=== PATIENT | female | born 1950 | race African-American/Black ===

== ENCOUNTER 2018-02-09 13:14 | Observation (INO) | payer OTHER ==
[2018-02-09 14:24] LABS: Absolute Lymphocytes (CBC) 2.4 K/uL (0.7-4.9); Absolute Monocytes 0.8 K/uL (0.1-1.3); Absolute Neutrophil 3.3 K/uL (1.8-8.0); Basophils % 0.9 % (0-1.3); Eosinophils % 3.9 % (0-4.4); Hematocrit 39.3 % (36.0-45.0); Lymphocytes % 35.5 % (15.3-44.8); MCH 26.4 pg (27.0-35.0); MCV 82.5 fL (80-100); MPV 7.9 fL (7.6-11.3); Monocytes % 11.2 % (3.3-12.3); RBC Red Blood Cell Count 4.76 M/uL (3.86-4.86)
[2018-02-09 14:25] LABS: Protime INR 1.1
[2018-02-09 14:42] LABS: ALT/SGPT 23 U/L (12-78); AST/SGOT 21 U/L (15-37); Albumin 3.4 g/dL (3.4-5.0); Alkaline Phosphatase 132 U/L (45-117); BUN Blood Urea Nitrogen 9 mg/dL (7-18); Bicarbonate 27 mmol/L (21-32); Bilirubin Direct 0.1 mg/dL (0-0.2); Bilirubin Total 0.3 mg/dL (0.2-1.0); Glucose Level 109 mg/dL (74-106); Magnesium 1.7 mg/dL (1.8-2.4); NT PRO-BNP 26 pg/mL (<125); Potassium 3.6 mmol/L (3.5-5.1); Protein, Total 7.2 g/dL (6.4-8.2); Sodium Level 143 mmol/L (136-145); Troponin (Emerg Dept Use Only) < 0.02 ng/mL (0.0-0.045)
--- NOTE | 2018-02-09 15:19 | RAD REPORT ---
EXAM DESCRIPTION: RAD - Chest Single View - 02/09/2018 2:49 pm CLINICAL HISTORY: Left-sided chest pain COMPARISON: Chest exam March 2016, CT chest December 2015 TECHNIQUE: AP portable chest image was obtained 1431 hours . FINDINGS: No focal infiltrate identified. Under penetrated technique accentuates left lung base altagracia ings. Masslike density in the medial left lung base is a known Bochdalek's hernia. Heart and vasculat ure are normal. No measurable pleural effusion and no pneumothorax. No acute bony abnormality seen. N o acute aortic findings suspected. IMPRESSION: Portable chest exam is limited but no acute cardiopulmonary process seen.
--- NOTE | 2018-02-09 16:00 | EDPHYS ---
Physician Documentation [facility] Department Name: Adalgisa Adams Age: 67 yrs Sex: Female : 1950 Arrival Date: 02/09/2018 Time: 13:16 Bed 26 Private MD: Chucky Albrecht B ED Physician Brayden Gordon HPI: 02/09 16:11 This 67 yrs old Black Female presents to ER via Ambulatory with complaints of Chest kdr Pain, Arm Pain. 16:11 The patient or guardian reports chest pain that is located primarily in the substernal kdr area, anterior chest wall, left, Under left breast. 02/10 09:56 Onset: suddenly, this morning, When she awoke from sleep. The pain radiates to the left kdr arm, the left shoulder, left neck. Associated signs and symptoms: Pertinent positives: dizziness, lightheadedness, shortness of breath, Pertinent negatives: abdominal pain, cough, headache, lower extremity pain, lower extremity swelling, near syncope, palpitations, syncope, vomiting. The chest pain is described as sharp. Duration: The patient or guardian reports multiple episodes, that are intermittent, that wax and wane, with no pattern, Worse with movement. Modifying factors: The symptoms are alleviated by nothing. the symptoms are aggravated by deep breath, movement. Severity of pain: At its worst the pain was mild moderate just prior to arrival, in the emergency department the pain has improved mildly. The patient has not experienced similar symptoms in the past, Had cardiac w/u with Dr. Vega last year but no other CAD known. The patient has not recently seen a physician. Historical: - Allergies: 02/09 13:20 Codeine; la1 - Home Meds: 19:39 losartan 50 mg oral tab 1 tab once daily for Hypertension [Active]; [place]-3 oral oral tl3 twice a day [Active]; cyclobenzaprine 5 mg Oral tab 1 tab 3 times per day [Active]; hydrochlorothiazide 25 mg Oral tab 1 tab 2 times per day [Active]; metformin 850 mg Oral tab 1 tab 2 times per day [Active]; omeprazole 20 mg Oral cpDR 1 cap once daily [Active]; allopurinol 300 mg Oral tab 1 tab once daily [Active]; Bystolic 10 mg oral tab 1 tab once daily [Active]; methscopolamine 5 mg oral tab 1 tab daily [Active]; atorvastatin 10 mg oral tab 1 tab once daily [Active]; Calcium Citrate Oral daily [Active]; magnesium oxide Oral daily [Active]; Trulicity 1.5 mg/0.5 mL subcutaneous pnij once wkly for Type 2 Diabetes Mellitus [Active]; - PMHx: 13:20 Diabetes - NIDDM; Hypertension; la1 - Immunization history:: Adult Immunizations up to date. - Social history:: Smoking status: Patient/guardian denies using tobacco. - Ebola Screening: : No symptoms or risks identified at this time. ROS: 02/10 09:56 Constitutional: Negative for fever, chills, and weight loss, Eyes: Negative for injury, kdr pain, redness, and discharge, ENT: Negative for injury, pain, and discharge, Neck: Negative for injury, pain, and swelling, Abdomen/GI: Negative for abdominal pain, nausea, vomiting, diarrhea, and constipation, Back: Negative for injury and pain, : Negative for injury, bleeding, discharge, and swelling, MS/Extremity: Negative for injury and deformity, Skin: Negative for injury, rash, and discoloration, Neuro: Negative for headache, weakness, numbness, tingling, and seizure activity. Psych: Negative for depression, anxiety, suicide ideation, homicidal ideation, and hallucinations, Allergy/Immunology: Negative for hives, rash, and allergies, Endocrine: Negative for neck swelling, polydipsia, polyuria, polyphagia, and marked weight changes, Hematologic/Lymphatic: Negative for swollen nodes, abnormal bleeding, and unusual bruising. Cardiovascular: Positive for chest pain, of the left breast, Negative for edema, orthopnea, palpitations, paroxysmal nocturnal dyspnea. Respiratory: Positive for shortness of breath. Neuro: Positive for dizziness. Exam: 09:56 Constitutional: This is a well developed, well nourished patient who is awake, alert, kdr and in no acute distress. Head/Face: Normocephalic, atraumatic. Eyes: Pupils equal round and reactive to light, extra-ocular motions intact. Lids and lashes normal. Conjunctiva and sclera are non-icteric and not injected. Cornea within normal limits. Periorbital areas with no swelling, redness, or edema. Neck: Trachea midline, no thyromegaly or masses palpated, and no cervical lymphadenopathy. Supple, full range of motion without nuchal rigidity, or vertebral point tenderness. No Meningismus. Chest/axilla: Normal chest wall appearance and motion. Nontender with no deformity. No lesions are appreciated. Cardiovascular: Regular rate and rhythm with a normal S1 and S2. No gallops, murmurs, or rubs. Normal PMI, no JVD. No pulse deficits. Respiratory: Lungs have equal breath sounds bilaterally, clear to auscultation and percussion. No rales, rhonchi or wheezes noted. No increased work of breathing, no retractions or nasal flaring. Abdomen/GI: Soft, non-tender, with normal bowel sounds. No distension or tympany. No guarding or rebound. No evidence of tenderness throughout. Back: No spinal tenderness. No costovertebral tenderness. Full range of motion. Skin: Warm, dry with normal turgor. Normal color with no rashes, no lesions, and no evidence of cellulitis. MS/ Extremity: Pulses equal, no cyanosis. Neurovascular intact. Full, normal range of motion. Neuro: Awake and alert, GCS 15, oriented to person, place, time, and situation. Cranial nerves II-XII grossly intact. Motor strength 5/5 in all extremities. Sensory grossly intact. Cerebellar exam normal. Normal gait. Psych: Awake, alert, with orientation to person, place and time. Behavior, mood, and affect are within normal limits. Vital Signs: 02/09 13:21 Pulse 85; Resp 16; Temp 97.8; Pulse Ox 98% on R/A; Weight 106.59 kg; Height 5 ft. 4 in. la1 (162.56 cm); 13:21 Pain 10/10; la1 13:22 BP 125 / 98; la1 14:12 BP 135 / 92; Pulse 82; Resp 18; Pulse Ox 100% on R/A; tl3 14:32 BP 142 / 80; Pulse 82; Resp 18; Pulse Ox 100% on R/A; tl3 15:55 BP 132 / 67; Pulse 73; Resp 16; Pulse Ox 100% on R/A; tl3 17:12 BP 150 / 92; Pulse 79; Resp 19; Pulse Ox 100% on R/A; tl3 18:19 BP 164 / 93; Pulse 81; Resp 18; Pulse Ox 100% on R/A; tl3 19:21 BP 134 / 74; Pulse 78; Resp 18; Pulse Ox 100% ; tl3 13:21 Body Mass Index 40.34 (106.59 kg, 162.56 cm) la1 MDM: 15:59 Patient medically screened. kdr 02/10 09:56 HEART Score: History: Moderately Suspicious (1), ECG: Non specific repolarization kdr disturbance / LBTB / PM (1), Age: > or = 65 years (2), Risk Factors: 1 or 2 risk factors (1), Total Score =. Data reviewed: vital signs, nurses notes, lab test result(s), EKG, radiologic studies. Counseling: I had a detailed discussion with the patient and/or guardian regarding: the historical points, exam findings, and any diagnostic results supporting the discharge/admit diagnosis, lab results, radiology results, the need for further work-up and treatment in the hospital. 02/09 13:59 Order name: Basic Metabolic Panel; Complete Time: 15:52 tl3 02/09 13:59 Order name: CBC with Diff; Complete Time: 15:52 tl3 02/09 13:59 Order name: LFT's; Complete Time: 15:52 tl3 02/09 13:59 Order name: Magnesium; Complete Time: 15:52 tl3 02/09 13:59 Order name: NT PRO-BNP; Complete Time: 15:52 tl3 02/09 13:59 Order name: PT-INR; Complete Time: 14:36 tl3 02/09 13:59 Order name: Troponin (emerg Dept Use Only); Complete Time: 15:52 tl3 02/09 13:59 Order name: XRAY Chest (1 view); Complete Time: 15:52 tl3 02/09 13:59 Order name: EKG; Complete Time: 14:01 tl3 02/09 13:59 Order name: Cardiac monitoring; Complete Time: 13:59 tl3 02/09 13:59 Order name: EKG - Nurse/Tech; Complete Time: 13:59 tl3 02/09 13:59 Order name: IV Saline Lock; Complete Time: 13:59 tl3 02/09 13:59 Order name: Labs collected and sent; Complete Time: 13:59 tl3 02/09 13:59 Order name: O2 Per Protocol; Complete Time: 13:59 tl3 02/09 13:59 Order name: O2 Sat Monitoring; Complete Time: 13:59 tl3 Administered Medications: 02/09 16:29 Drug: morphine 2 mg Route: IVP; Infused Over: 2 mins; Site: right antecubital; tl3 17:14 Follow up: Response: Pain is decreased tl3 Disposition: 02/09/18 15:59 Hospitalization ordered by Lena Gillis for Inpatient Admission. Preliminary diagnosis are Chest pain, unspecified, Diabetes mellitus due to underlying condition. - Bed requested for Telemetry/MedSurg (observation). - Status is Inpatient Admission. tl3 - Condition is Fair. - Problem is an acute exacerbation. - Symptoms have improved. UTI on Admission? No Signatures: Dispatcher [employer] EDMS Nancy Burrows RN RN dw Brayden Gordon MD MD kdr Tommy Banks RN RN la1 Jeannine Marie RN RN tl3 Corrections: (The following items were deleted from the chart) 18:40 15:59 Hospitalization Ordered by Lena Gillsi MD for Inpatient Admission. Preliminary dw diagnosis is Chest pain, unspecified; Diabetes mellitus due to underlying condition. Bed requested for Telemetry/MedSurg (observation). Status is Inpatient Admission. Condition is Fair. Problem is an acute exacerbation. Symptoms have improved. UTI on Admission? No. kdr 19:48 18:40 02/09/2018 15:59 Hospitalization Ordered by Lena Gillis MD for Inpatient tl3 Admission. Preliminary diagnosis is Chest pain, unspecified; Diabetes mellitus due to underlying condition. Bed requested for Telemetry/MedSurg (observation). Status is Inpatient Admission. Condition is Fair. Problem is an acute exacerbation. Symptoms have improved. UTI on Admission? No. dw
--- NOTE | 2018-02-09 16:00 | ER ---
Nurse's Notes [facility] Name: Adalgisa Adams Age: 67 yrs Sex: Female : 1950 Arrival Date: 02/09/2018 Time: 13:16 Bed 26 Private MD: Chucky Albrecht B Diagnosis: Chest pain, unspecified;Diabetes mellitus due to underlying condition Presentation: 02/09 13:20 Presenting complaint: Patient states: I woke up with a pain under my left breast that la1 goes around my back and to my left arm and I feel a little SOB and dizzy. It is a sharp, stabbing pain. Transition of care: patient was not received from another setting of care. Onset of symptoms was February 09, 2018. Risk Assessment: Do you want to hurt yourself or someone else? Patient reports no desire to harm self or others. Initial Sepsis Screen: Does the patient meet any 2 criteria? No. Patient's initial sepsis screen is negative. Does the patient have a suspected source of infection? No. Patient's initial sepsis screen is negative. Care prior to arrival: None. 13:20 Method Of Arrival: Ambulatory la1 13:20 Acuity: SHERRIE 3 la1 Historical: - Allergies: 13:20 Codeine; la1 - Home Meds: 19:39 losartan 50 mg oral tab 1 tab once daily for Hypertension [Active]; [place]-3 oral oral tl3 twice a day [Active]; cyclobenzaprine 5 mg Oral tab 1 tab 3 times per day [Active]; hydrochlorothiazide 25 mg Oral tab 1 tab 2 times per day [Active]; metformin 850 mg Oral tab 1 tab 2 times per day [Active]; omeprazole 20 mg Oral cpDR 1 cap once daily [Active]; allopurinol 300 mg Oral tab 1 tab once daily [Active]; Bystolic 10 mg oral tab 1 tab once daily [Active]; methscopolamine 5 mg oral tab 1 tab daily [Active]; atorvastatin 10 mg oral tab 1 tab once daily [Active]; Calcium Citrate Oral daily [Active]; magnesium oxide Oral daily [Active]; Trulicity 1.5 mg/0.5 mL subcutaneous pnij once wkly for Type 2 Diabetes Mellitus [Active]; - PMHx: 13:20 Diabetes - NIDDM; Hypertension; la1 - Immunization history:: Adult Immunizations up to date. - Social history:: Smoking status: Patient/guardian denies using tobacco. - Ebola Screening: : No symptoms or risks identified at this time. Screenin:54 Abuse screen: Denies threats or abuse. Nutritional screening: No deficits noted. tl3 Tuberculosis screening: No symptoms or risk factors identified. Fall Risk None identified. Assessment: 13:54 General: Appears in no apparent distress. well groomed, well developed, well nourished, tl3 Behavior is calm, cooperative, appropriate for age. Pain: Pain radiates to left subscapular area Pain began 4 hours ago. Neuro: Level of Consciousness is awake, alert, obeys commands, Oriented to person, place, time, situation, Appropriate for age. Cardiovascular: Heart tones S1 S2 present Patient's skin is warm and dry. Respiratory: Airway is patent Respiratory effort is even, unlabored, Respiratory pattern is regular, symmetrical. GI: No signs and/or symptoms were reported involving the gastrointestinal system. : No signs and/or symptoms were reported regarding the genitourinary system. EENT: No signs and/or symptoms were reported regarding the EENT system. Derm: No signs and/or symptoms reported regarding the dermatologic system. 14:32 Reassessment: No changes from previously documented assessment. Patient and/or family tl3 updated on plan of care and expected duration. Pain level reassessed. Patient is alert, oriented x 3, equal unlabored respirations, skin warm/dry/pink. Dr Gordon at bedside discussing POC. 15:55 Reassessment: Patient appears in no apparent distress at this time. No changes from tl3 previously documented assessment. Patient and/or family updated on plan of care and expected duration. Pain level reassessed. Patient is alert, oriented x 3, equal unlabored respirations, skin warm/dry/pink. discussed returned lab results with patient and family. 17:12 Reassessment: Patient appears in no apparent distress at this time. No changes from tl3 previously documented assessment. Patient and/or family updated on plan of care and expected duration. Pain level reassessed. Patient is alert, oriented x 3, equal unlabored respirations, skin warm/dry/pink. pt sleeping, easily aroused, no needs at this time. 18:19 Reassessment: Patient appears in no apparent distress at this time. No changes from tl3 previously documented assessment. Patient and/or family updated on plan of care and expected duration. Pain level reassessed. Patient is alert, oriented x 3, equal unlabored respirations, skin warm/dry/pink. waiting for admit. 19:21 Reassessment: Patient appears in no apparent distress at this time. No changes from tl3 previously documented assessment. Patient and/or family updated on plan of care and expected duration. Pain level reassessed. Patient is alert, oriented x 3, equal unlabored respirations, skin warm/dry/pink. pt informed of delays. Vital Signs: 13:21 Pulse 85; Resp 16; Temp 97.8; Pulse Ox 98% on R/A; Weight 106.59 kg; Height 5 ft. 4 in. la1 (162.56 cm); 13:21 Pain 10/10; la1 13:22 BP 125 / 98; la1 14:12 BP 135 / 92; Pulse 82; Resp 18; Pulse Ox 100% on R/A; tl3 14:32 BP 142 / 80; Pulse 82; Resp 18; Pulse Ox 100% on R/A; tl3 15:55 BP 132 / 67; Pulse 73; Resp 16; Pulse Ox 100% on R/A; tl3 17:12 BP 150 / 92; Pulse 79; Resp 19; Pulse Ox 100% on R/A; tl3 18:19 BP 164 / 93; Pulse 81; Resp 18; Pulse Ox 100% on R/A; tl3 19:21 BP 134 / 74; Pulse 78; Resp 18; Pulse Ox 100% ; tl3 13:21 Body Mass Index 40.34 (106.59 kg, 162.56 cm) la1 ED Course: 13:16 Patient arrived in ED. mr 13:16 Chucky Albrecht MD is Private Physician. mr 13:20 Triage completed. la1 13:20 Arm band placed on left wrist. la1 13:35 Brayden Gordon MD is Attending Physician. kdr 13:42 Jeannine Marie, TAMMY is Primary Nurse. tl3 13:45 EKG done, by ED staff, reviewed by Brayden Gordon MD. mh5 13:54 Patient has correct armband on for positive identification. Placed in gown. Bed in low tl3 position. Call light in reach. Side rails up X2. Adult w/ patient. bulk mail technician on. Pulse ox on. NIBP on. Warm blanket given. Pillow given. 13:54 No provider procedures requiring assistance completed. Inserted saline lock: 20 gauge tl3 in right antecubital area, using aseptic technique. Patient maintains SpO2 saturation greater than 95% on room air. 14:33 XRAY Chest (1 view) Sent. tl3 14:50 XRAY Chest (1 view) In Process Unspecified. EDMS 15:58 Lena Gillis MD is Hospitalizing Provider. kdr 19:47 Patient admitted, IV remains in place. tl3 Administered Medications: 16:29 Drug: morphine 2 mg Route: IVP; Infused Over: 2 mins; Site: right antecubital; tl3 17:14 Follow up: Response: Pain is decreased tl3 Outcome: 15:59 Decision to Hospitalize by Provider. kdr 19:47 Admitted to Med/surg accompanied by tech, via stretcher, with chart, Report called to tl3 Ashley MUNOZ 19:47 Condition: stable 19:47 Instructed on the need for admit, Demonstrated understanding of instructions. 19:48 Patient left the ED. tl3 Signatures: Dispatcher [employer] EDAL Brayden Gordon MD MD kdr Rivera, Mary mr Tommy Banks, RN RN Chacha Fontenot [facility] Jeannine Marie, TAMMY RN tl3 Corrections: (The following items were deleted from the chart) 13:22 13:20 Presenting complaint: Patient states: I woke up with a pain under my left breast la1 that goes around my back and to my left arm and I feel a little SOB and dizzy . la1
[2018-02-09] MEDS ORDERED: MORPHINE 2 MG/ML SYR ONE (16:33)
[2018-02-09] MEDS ORDERED: ACETAMINOPHEN 500 MG TAB PO PRN (19:32)
[2018-02-09] MEDS: HYDROCODONE/APAP 10/325 TAB PO PRN (22:54)
[2018-02-10 00:19] VITALS: BMI 39.6
[2018-02-10 01:53] VITALS: O2SAT 95
[2018-02-10] MEDS ORDERED: METOPROLOL TARTRATE 5 MG/5 ML INJ IV STA (02:30)
[2018-02-10 05:07] LABS: Absolute Neutrophil 4.7 K/uL (1.8-8.0); Basophils % 0.7 % (0-1.3); Eosinophils % 3.5 % (0-4.4); Hematocrit 37.2 % (36.0-45.0); Lymphocytes % 24.8 % (15.3-44.8); MCH 26.7 pg (27.0-35.0); MCV 82.2 fL (80-100); Monocytes % 12.2 % (3.3-12.3); RBC Red Blood Cell Count 4.53 M/uL (3.86-4.86)
[2018-02-10] MEDS: HYDROCODONE/APAP 10/325 TAB PO PRN (05:23)
[2018-02-10 05:46] LABS: Bilirubin Total 0.3 mg/dL (0.2-1.0); Magnesium 1.6 mg/dL (1.8-2.4); Potassium 3.8 mmol/L (3.5-5.1); Protein, Total 6.8 g/dL (6.4-8.2)
[2018-02-10] MEDS ORDERED: POTASSIUM CL SA 10 MEQ TAB PO ONE (06:03)
--- NOTE | 2018-02-10 06:09 | EKG ---
Test Date: 2018-02-09 Test Time: 13:42:18 Feed Crusher Operator: SAM MEASUREMENT RESULTS: Intervals: Rate: 85 ND: 172 QRSD: 86 QT: 390 QTc: 464 Foster: P: 41 ND: 172 QRS: 46 T: -14 INTERPRETIVE STATEMENTS: Normal sinus rhythm Nonspecific ST and T wave abnormality Abnormal ECG Compared to ECG 12/25/2015 05:38:44 ST (T wave) deviation now present T-wave abnormality no longer present Electronically Signed On 02-10-18 06:08:28 ASSISTANT MANAGER PT by Barrie Lozano
[2018-02-10] MEDS ORDERED: MAGNESIUM SULFATE 1 gm IVPB 1 GM/100 ML BAG IV ONE (07:00)
[2018-02-10] MEDS ORDERED: MAGNESIUM PO SCH (09:00)
[2018-02-10] MEDS: METFORMIN HCL 850 MG TAB PO SCH ×2 (09:00→20:43)
[2018-02-10] MEDS ORDERED: HOME MED 1 EA UNK (Omeprazole [Omeprazole] 1 CAP) PO SCH (09:00)
[2018-02-10] MEDS: CALCIUM CARB 500MG/VIT D 200 IU TAB PO SCH ×2 (09:00→20:44)
[2018-02-10] MEDS: LOSARTAN POTASSIUM 50 MG TABLET PO SCH (09:40)
[2018-02-10] MEDS: ENOXAPARIN 40 MG/0.4 ML SQ SCH (09:40)
[2018-02-10] MEDS: MAGNESIUM OXIDE 400 MG TAB PO SCH (09:40)
[2018-02-10] MEDS: CYCLOBENZAPRINE 10 MG TAB PO SCH ×3 (09:41→20:43)
[2018-02-10] MEDS: ASPIRIN EC 81 MG TAB PO SCH (09:41)
[2018-02-10] MEDS: NEBIVOLOL HCL 5 MG TAB PO SCH (09:41)
[2018-02-10] MEDS: ALLOPURINOL 300 MG TAB PO SCH (09:41)
[2018-02-10] MEDS: DOCOSAHEXANOIC AC/EPA 1000 MG PO SCH ×2 (09:41→20:43)
[2018-02-10] MEDS: FOLIC ACID 1 MG TABLET PO SCH (09:42)
[2018-02-10] MEDS: HYDROXYCHLOROQUINE 200MG TAB PO SCH ×2 (09:46→20:44)
[2018-02-10 09:49] LABS: Urine Appearance CLEAR; Urine Bilirubin NEGATIVE (NEG); Urine Blood NEGATIVE (NEG); Urine Color YELLOW; Urine Glucose NEGATIVE (NEG); Urine Protein NEGATIVE (NEG); Urine Specific Gravity 1.025 (1.005-1.030); Urine Urobilinogen 0.2 mg/dL (0.2-1.0)
[2018-02-10 10:16] LABS: Urine Microscopic Reflex ORDER UMIC
[2018-02-10 10:21] LABS: Urine Bacteria <20 /HPF (<20); Urine Culture Reflex Order REFLEXED; Urine Mucus LIGHT /HPF (NONE SEEN); Urine RBC <5 /HPF (NONE SEEN)
--- NOTE | 2018-02-10 11:11 | CON ---
CARDIOLOGY CONSULT Chief Complaint: Chest pain. History Of Present Illness: Mrs. Adams has never had any coronary events before. She certainly veloz s multiple risk factors for CAD. She has obesity, diabetes, hypertension, and dyslipidemia. She use s no tobacco. She has never had myocardial infarction, stroke, or chest pain before. The chest pain she had started under the left breast, it did not seem to radiate. It was like sharp stabbing pain. It lasted for several hours without really changing much, although morphine reduce the intensity of it some. Since she has been in the hospital, cardiac enzymes are all normal. The cholesterol level was 112 and LDL cholesterol was only 26 and her HDL was 67, but I would consider an extremely health y lipid profile. Outpatient Medications: Magnesium, immunoglobulin, oral; atorvastatin, nebivolol, allopurinol, omepr azole, metformin, hydroxychloroquine, omega-3 fatty acids, cyclobenzaprine, losartan, Trulicity, aspi rin, and a multivitamin with calcium, and vitamin D3. Apparently, she has also been on allopurinol a s an outpatient. Physical Examination: General: Mrs. Adams is obese, alert, oriented, 5 feet 4, 230 pounds, not in distress. Lungs: Clear. Cardiac: Within normal limits. No friction rub, murmur, or gallop. Abdomen: Soft. Extremities: Trace edema. Distal pulses palpable. Impression: This is probably noncardiac chest pain. Her electrocardiogram shows a nonspecific ST an d T-wave abnormality and looks like the changes typical of left ventricular hypertrophy from hyperten lobito without the voltage. I think the patient should have a pharmacologic nuclear stress test and ec ho. We will do those tomorrow and hopefully that will be normal and we can reassure her about the nature of the pain, look for other causes that might be making her hurt. HARSHAL/BEVERLEY Voice ID: [id number] Report ID: [id number]
--- NOTE | 2018-02-10 12:15 | P.HP ---
Certification for Inpatient Patient admitted to: Observation With expected LOS: <2 Midnights Patient will require the following post-hospital care: None Practitioner: I am a practitioner with admitting privileges, knowledge of patient current condition, hospital course, and medical plan of care. Services: Services provided to patient in accordance with Admission requirements found in Title 42 Section 412.3 of the Code of Federal Regulations Patient History Date of Service: 02/09/18 Reason for admission: Chest pain rule out acute coronary syndrome History of Present Illness: Patient is a 67-year-old female who came into the hospital with chest pain. Pain was mainly in the sternal region. There was radiation to the left side of the arm. Patient has some nausea but no vomiting. Patient came into the hospital for further evaluation. In the ER patient's EKGs did not show any acute findings other some nonspecific changes in the ST segments. Patient also had troponins which were negative. Chest x-ray did not reveal any significant abnormalities. Patient has multiple risk factors so will go ahead and admit the patient to the hospital for further workup. Patient has some autoimmune diseases which can increase the risk of cardiac disease. Check a lipid profile and additional lab testing. Patient will need further workup at this time. Allergies codeine [Codeine] Allergy (Verified 02/09/18 20:36) Itching/Hives/Rash Home Medications: Allopurinol 1 tab PO DAILY 02/09/18 Atorvastatin Calcium [Lipitor*] 1 tab PO DAILY 02/09/18 Cyclobenzaprine [Flexeril*] 1 tab PO TID 02/09/18 Dulaglutide [Trulicity] 02/09/18 Hydroxychloroquine [Plaquenil*] 1 tab PO BID 02/09/18 Immune Glob/Plasma Fra Bovine [Enteragam Powder Packet] 1 packet PO DAILY PRN Losartan Potassium [Cozaar*] 1 tab PO DAILY 02/09/18 Magnesium [Magnesium Gluconate] 1 tab PO DAILY 02/09/18 Metformin HCl 1 tab PO BID 02/09/18 Nebivolol HCl [Bystolic*] 10 mg PO DAILY 02/09/18 [place]-3 Fatty Acids/Fish Oil [Fish Oil 1,000 mg Capsule] 1 cap PO BID 02/09/18 Omeprazole 1 cap PO DAILY 02/09/18 Aspirin [Lo-Dose Aspirin EC] 1 tab PO DAILY 02/10/18 Ca/D3/Mag Ox/Zinc/Hand Pleater/Deangelo/Bor [Calcium 600-D3 Plus Caplet] 1 tab PO BID Folic Acid 1 tab PO DAILY 02/10/18 - Past Medical/Surgical History Has patient received pneumonia vaccine in the past: Yes Diabetic: Yes -: Diabetes -: HTN -: Arthritis -: Gout -: crohns -: high cholesterol -: bilat carpal tunnel 1999 -: right knee replacement 2004 -: hysterectomy 1998 -: cholecystectomy - Family History Mother Medical History: Heart disease, Diabetes, Stroke Father History Unknown: Yes Medical History: Diabetes, Cancer Notes: prostate cx Sister History Unknown: Yes Medical History: Cancer Notes: breast cx - Social History Smoking Status: Never smoker Alcohol use: No CD- Drugs: No Caffeine use: Yes Place of Residence: Home Review of Systems 10-point ROS is otherwise unremarkable Physical Examination - Vital Signs Temperature: 97.5 F Blood Pressure: 135/74 Pulse: 90 Respirations: 17 Pulse Ox (%): 95 - Physical Exam General: Alert, In no apparent distress, Oriented x3 HEENT: Atraumatic, PERRLA, Mucous membr. moist/pink, EOMI, Sclerae nonicteric Neck: Supple, 2+ carotid pulse no bruit, No LAD, Without JVD or thyroid abnormality Respiratory: Clear to auscultation bilaterally, Normal air movement Cardiovascular: Regular rate/rhythm, Normal S1 S2, No murmurs Gastrointestinal: Normal bowel sounds, Soft and benign, Non-distended, No tenderness Musculoskeletal: No clubbing, No swelling, No tenderness Integumentary: No rashes Neurological: Normal gait, Normal speech, Normal strength at 5/5 x4 extr, Normal tone, Sensation intact, Cranial nerves 3-12 intact, Normal affect Lymphatics: No axilla or inguinal lymphadenopathy - Studies Laboratory Data (last 24 hrs) 02/09/18 14:00: PT 13.0 H, INR 1.10 02/09/18 14:00: WBC 6.8, Hgb 12.6, Hct 39.3, Plt Count 288 02/09/18 14:00: Sodium 143, Potassium 3.6, BUN 9, Creatinine 1.10, Glucose 109 H , Magnesium 1.7 L, Total Bilirubin 0.3, AST 21, ALT 23, Alkaline Phosphatase 132 H Assessment & Plan - Problems (Diagnosis) (1) Chest pain, rule out acute myocardial infarction Current Visit: Yes Status: Acute (2) Hyperlipidemia Current Visit: Yes Status: Acute (3) STEPHIE (obstructive sleep apnea) Current Visit: Yes Status: Acute (4) Diabetes mellitus Onset Date: 08/26/14 Current Visit: No Status: Acute (5) HTN (hypertension) Onset Date: 08/26/14 Current Visit: No Status: Acute - Plan 1. Serial troponins and EKG 2. Cardiology consultation 3. Echocardiogram and inpatient stress test(pending cardiology evaluation) 4. Anti-platelet therapy, anti coagulation, beta-derrick, statin, and O2 as needed 5. IV morphine for pain 6. Nitro p.r.n. 7. CPAP mode 8. GI/DVT prophylaxis Discharge Plan: Home Plan to discharge in: 48 Hours - Advance Directives Does patient have a Living Will: No Does patient have a Durable POA for Healthcare: No - Code Status/Comfort Care Code Status Assessed: Yes Code Status: Full Code Critical Care: No Time Spent Managing PTS Care (In Minutes): 50
--- NOTE | 2018-02-10 12:45 | P.PN ---
Subjective Date of Service: 02/10/18 Chief Complaint: Chest pain rule out acute coronary syndrome Subjective: Tolerating diet, Ambulating, Improving, Working w/ PT, Doing well No Chest Pain noted. Awaiting stress test and ECHO to R.o ACS Review of Systems 10-point ROS is otherwise unremarkable Physical Examination - Vital Signs Temperature: 97.5 F Blood Pressure: 135/74 Pulse: 90 Respirations: 17 Pulse Ox (%): 95 - Physical Exam General: Alert, In no apparent distress HEENT: Atraumatic, PERRLA, EOMI Neck: Supple, JVD not distended Respiratory: Clear to auscultation bilaterally, Normal air movement Cardiovascular: Regular rate/rhythm, Normal S1 S2 Gastrointestinal: Normal bowel sounds, No tenderness Musculoskeletal: No tenderness Integumentary: No rashes Neurological: Normal speech, Normal tone, Normal affect Lymphatics: No axilla or inguinal lymphadenopathy - Studies Laboratory Data (last 24 hrs) 02/09/18 14:00: PT 13.0 H, INR 1.10 02/09/18 14:00: WBC 6.8, Hgb 12.6, Hct 39.3, Plt Count 288 02/09/18 14:00: Sodium 143, Potassium 3.6, BUN 9, Creatinine 1.10, Glucose 109 H , Magnesium 1.7 L, Total Bilirubin 0.3, AST 21, ALT 23, Alkaline Phosphatase 132 H Medications List Reviewed: Yes Assessment And Plan - Current Problems (Diagnosis) (1) Chest pain, rule out acute myocardial infarction Current Visit: Yes Status: Acute Plan: Chest Pain with ACS r.o. -Cardiology consulted. Awaiting reccs -ECHO and stress test pending -ACS medication for now (2) Hyperlipidemia Current Visit: Yes Status: Chronic Qualifiers: Hyperlipidemia type: mixed hyperlipidemia Qualified Code(s): E78.2 - Mixed hyperlipidemia (3) STEPHIE (obstructive sleep apnea) Current Visit: Yes Status: Chronic (4) Diabetes mellitus Onset Date: 08/26/14 Current Visit: No Status: Chronic Qualifiers: Diabetes mellitus type: type 2 Diabetes mellitus guest relation officer insulin use: without skilled nursing use Diabetes mellitus complication status: without complication Qualified Code(s): E11.9 - Type 2 diabetes mellitus without complications (5) HTN (hypertension) Onset Date: 08/26/14 Current Visit: No Status: Chronic Qualifiers: Hypertension type: essential hypertension Qualified Code(s): I10 - Essential (primary) hypertension Discharge Plan: Home Plan to discharge in: 48 Hours - Code Status/Comfort Care Code Status Assessed: Yes Critical Care: No
[2018-02-10] MEDS ORDERED: ATORVASTATIN 10 MG TAB PO SCH (21:00)
[2018-02-11 06:29] LABS: Absolute Lymphocytes (CBC) 2.9 K/uL (0.7-4.9); Absolute Neutrophil 3.7 K/uL (1.8-8.0); Eosinophils % 4.2 % (0-4.4); Hematocrit 37.5 % (36.0-45.0); Lymphocytes % 36.8 % (15.3-44.8); MCH 26.6 pg (27.0-35.0); MPV 7.9 fL (7.6-11.3); Monocytes % 12.1 % (3.3-12.3); RBC Red Blood Cell Count 4.57 M/uL (3.86-4.86)
[2018-02-11] MEDS ORDERED: PANTOPRAZOLE 40MG TABLET PO SCH (06:30)
[2018-02-11 06:43] LABS: Albumin 2.9 g/dL (3.4-5.0); Bilirubin Total 0.3 mg/dL (0.2-1.0); Magnesium 1.7 mg/dL (1.8-2.4); Potassium 4.1 mmol/L (3.5-5.1); Protein, Total 6.5 g/dL (6.4-8.2)
[2018-02-11] MEDS ORDERED: MAGNESIUM SULFATE 1 gm IVPB 1 GM/100 ML BAG IV ONE (07:00)
[2018-02-11] MEDS: CALCIUM CARB 500MG/VIT D 200 IU TAB PO SCH ×2 (09:00→12:33)
[2018-02-11] MEDS: CYCLOBENZAPRINE 10 MG TAB PO SCH ×2 (09:00→12:37)
[2018-02-11] MEDS: LOSARTAN POTASSIUM 50 MG TABLET PO SCH ×2 (09:00→12:33)
[2018-02-11] MEDS: FOLIC ACID 1 MG TABLET PO SCH ×2 (09:00→12:33)
[2018-02-11] MEDS: HYDROXYCHLOROQUINE 200MG TAB PO SCH ×2 (09:00→12:33)
[2018-02-11] MEDS: DOCOSAHEXANOIC AC/EPA 1000 MG PO SCH ×2 (09:00→12:30)
[2018-02-11] MEDS: MAGNESIUM OXIDE 400 MG TAB PO SCH ×2 (09:00→12:33)
[2018-02-11] MEDS: ALLOPURINOL 300 MG TAB PO SCH ×2 (09:00→12:33)
[2018-02-11] MEDS: ASPIRIN EC 81 MG TAB PO SCH ×2 (09:00→12:33)
[2018-02-11] MEDS: METFORMIN HCL 850 MG TAB PO SCH ×2 (09:00→12:30)
[2018-02-11] MEDS: NEBIVOLOL HCL 5 MG TAB PO SCH ×2 (09:00→12:33)
[2018-02-11] MEDS ORDERED: REGADENOSON 0.4 MG/5 ML SYR IV ONE (09:54)
[2018-02-11] MEDS: ENOXAPARIN 40 MG/0.4 ML SQ SCH (10:04)
--- NOTE | 2018-02-11 10:28 | P.DS ---
Admission Date: 02/09/18 Discharge Date: 02/11/18 Primary Care Provider: Dr. Albrecht Disposition: ROUTINE DISCHARGE Discharge Condition: GOOD Reason for Admission: Chest pain rule out acute coronary syndrome Consultations: Cardiology-Dr. Lozano Procedures: ECHO: Results pending at discharge. Cardiac Stress Test: COMPARISON: REST STRESS CARDIAC dated 08/26/2014 TECHNIQUE: The patient was administered approximately 10mCi of Tc 99m Sestamibi prior to resting SPECT imaging of the heart. The patient was then administered approximately 30 mCi of Tc 99m Sestamibi following exercise or pharmacologic stress. Multiplanar SPECT images were reviewed. FINDINGS: No stress induced ischemic defect is seen to suggest stress induced ischemia. No fixed defect is seen to suggest hibernating myocardium or scarred myocardium. The end diastolic volume is 82 ml, the end systolic volume is 31 ml, and the ejection fraction is 62 %. IMPRESSION: No stress induced ischemia. Medical problem list: Chest pain, atypical Diabetes mellitus type 2 Hypertension Hyperlipidemia Obstructive sleep apnea on CPAP Obesity, BMI 39 Gout GERD Brief History of Present Illness: 67-year-old female presented to emergency room with chest pain. Pain was mainly to the substernal region. It was atypical. Patient with history of hypertension, diabetes, obstructive sleep apnea on CPAP, and obesity. Patient admitted for further evaluation. Hospital Course: Patient presented with sternal chest pain. Symptoms atypical. Patient admitted for further evaluation. Cardiac enzymes unremarkable. Patient seen and evaluated by Cardiology. Cardiology recommended echocardiogram and cardiac stress test. Cardiac stress test showed no stress-induced ischemia. Ejection fraction within normal range. No further cardiac intervention recommended at this time. At discharge patient will continue with aspirin 81 mg daily. Patient may follow up with cardiology in 2-4 weeks to monitor her progress. Patient has diabetes type 2. Diabetes well controlled at this time. Patient will continue with metformin 150 mg 1 pill twice daily and Trulicity as directed. Recommendation is to maintain blood sugars less than 140 fasting and less than 200 after meals. Further adjustment can be done by her PCP. Patient has hypertension. Blood pressure well controlled. At discharge she will continue with losartan 50 mg once daily and Bystolic 10 mg daily. Recommendation is to maintain blood pressures less 150/80. Further adjustment can be done by her PCP. Patient has hyperlipidemia. Lipid panel very well controlled. Patient may continue with Lipitor 10 mg daily and fish oil 1 pill twice daily. Further adjustment can be done by her PCP. Patient has obstructive sleep apnea. She currently uses CPAP at night. Recommendation to continue with CPAP. Further adjustment can be done by her PCP. Patient has obesity. BMI 39. Lifestyle modification education will be provided. Patient has gout. Patient stable at this time. Patient will continue with allopurinol 300 mg daily. Patient has GERD. Patient will continue with Prilosec 20 mg daily. Lifestyle modification education for GERD will be provided. Vital Signs/Physical Exam: Temp Pulse Resp BP Pulse Ox 97.8 F 78 18 140/69 95 02/11/18 04:00 02/11/18 04:00 02/11/18 04:00 02/11/18 04:00 02/11/18 04:00 General: Alert, In no apparent distress, Oriented x3, Cooperative HEENT: Atraumatic, Mucous membr. moist/pink Neck: Supple, No Thyromegaly Respiratory: Clear to auscultation bilaterally, Normal air movement Cardiovascular: Normal pulses, Regular rate/rhythm Gastrointestinal: Normal bowel sounds, Soft and benign, Non-distended, No tenderness, No masses, No rebound, No guarding Musculoskeletal: No contractures, No erythema, No tenderness, No warmth Integumentary: No tenderness/swelling, No erythema, No warmth, No cyanosis Neurological: Normal speech, Normal strength at 5/5 x4 extr, Normal tone, Normal affect Laboratory Data at Discharge: WBC 8.0 K/uL (4.3-10.9) 02/11/18 06:00 Hgb 12.2 g/dL (12.0-15.0) 02/11/18 06:00 Hct 37.5 % (36.0-45.0) 02/11/18 06:00 Plt Count 285 K/uL (152-406) 02/11/18 06:00 PT 13.0 SECONDS (9.5-12.5) H 02/09/18 14:00 INR 1.10 02/09/18 14:00 Sodium 142 mmol/L (136-145) 02/11/18 06:00 Potassium 4.1 mmol/L (3.5-5.1) 02/11/18 06:00 BUN 13 mg/dL (7-18) 02/11/18 06:00 Creatinine 1.10 mg/dL (0.55-1.3) 02/11/18 06:00 Glucose 100 mg/dL (74-106) 02/11/18 06:00 Magnesium 1.7 mg/dL (1.8-2.4) L 02/11/18 06:00 Total Bilirubin 0.3 mg/dL (0.2-1.0) 02/11/18 06:00 AST 20 U/L (15-37) 02/11/18 06:00 ALT 21 U/L (12-78) 02/11/18 06:00 Alkaline Phosphatase 120 U/L (45-117) H 02/11/18 06:00 Troponin I < 0.02 ng/mL (0.0-0.045) 02/10/18 11:43 Triglycerides 96 mg/dL (<150) 02/10/18 09:00 Cholesterol 112 mg/dL (<200) 02/10/18 09:00 HDL Cholesterol 67 mg/dL (40-60) H 02/10/18 09:00 Cholesterol/HDL Ratio 1.67 02/10/18 09:00 Home Medications: Allopurinol 1 tab PO DAILY 02/09/18 Atorvastatin Calcium [Lipitor*] 1 tab PO DAILY 02/09/18 Cyclobenzaprine [Flexeril*] 1 tab PO TID 02/09/18 Dulaglutide [Trulicity] 02/09/18 Hydroxychloroquine [Plaquenil*] 1 tab PO BID 02/09/18 Immune Glob/Plasma Fra Bovine [Enteragam Powder Packet] 1 packet PO DAILY PRN Losartan Potassium [Cozaar*] 1 tab PO DAILY 02/09/18 Magnesium [Magnesium Gluconate] 1 tab PO DAILY 02/09/18 Metformin HCl 1 tab PO BID 02/09/18 Nebivolol HCl [Bystolic*] 10 mg PO DAILY 02/09/18 [place]-3 Fatty Acids/Fish Oil [Fish Oil 1,000 mg Capsule] 1 cap PO BID 02/09/18 Omeprazole 1 cap PO DAILY 02/09/18 Aspirin [Lo-Dose Aspirin EC] 1 tab PO DAILY 02/10/18 Ca/D3/Mag Ox/Zinc/Parts Counter Sales Person/Deangelo/Bor [Calcium 600-D3 Plus Caplet] 1 tab PO BID Folic Acid 1 tab PO DAILY 02/10/18 Methscopolam 5 mg PO DAILY 02/10/18 Patient Discharge Instructions: 1. Follow up with PCP in 1-2 weeks to follow up this hospitalization. 2. Patient presented with sternal chest pain. Symptoms atypical. Patient admitted for further evaluation. Cardiac enzymes unremarkable. Patient seen and evaluated by Cardiology. Cardiology recommended echocardiogram and cardiac stress test. Cardiac stress test showed no stress-induced ischemia. Ejection fraction within normal range. No further cardiac intervention recommended at this time. At discharge patient will continue with aspirin 81 mg daily. Patient may follow up with cardiology in 2- 4 weeks to monitor her progress. 3. Patient has diabetes type 2. Diabetes well controlled at this time. Patient will continue with metformin 150 mg 1 pill twice daily and Trulicity as directed. Recommendation is to maintain blood sugars less than 140 fasting and less than 200 after meals. Further adjustment can be done by her PCP. 4. Patient has hypertension. Blood pressure well controlled. At discharge she will continue with losartan 50 mg once daily and Bystolic 10 mg daily. Recommendation is to maintain blood pressures less 150/80. Further adjustment can be done by her PCP. 5. Patient has hyperlipidemia. Lipid panel very well controlled. Patient may continue with Lipitor 10 mg daily and fish oil 1 pill twice daily. Further adjustment can be done by her PCP. 6. Patient has obstructive sleep apnea. She currently uses CPAP at night. Recommendation to continue with CPAP. Further adjustment can be done by her PCP. 7. Patient has obesity. BMI 39. Lifestyle modification education will be provided. 8. Patient has gout. Patient stable at this time. Patient will continue with allopurinol 300 mg daily. 9. Patient has GERD. Patient will continue with Prilosec 20 mg daily. Lifestyle modification education for GERD will be provided. Diet: ADA Activity: Ad keshav Time spent managing pt's care (in minutes): 55
--- NOTE | 2018-02-11 11:57 | RAD REPORT ---
EXAM DESCRIPTION: NM - Rest Stress Cardiac Imaging - 02/11/2018 11:47 am CLINICAL HISTORY: CP Chest pain. COMPARISON: REST STRESS CARDIAC dated 08/26/2014 TECHNIQUE: The patient was administered approximately 10mCi of Tc 99m Sestamibi prior to resting SPE CT imaging of the heart. The patient was then administered approximately 30 mCi of Tc 99m Sestamibi f ollowing exercise or pharmacologic stress. Multiplanar SPECT images were reviewed. FINDINGS: No stress induced ischemic defect is seen to suggest stress induced ischemia. No fixed def ect is seen to suggest hibernating myocardium or scarred myocardium. The end diastolic volume is 82 ml, the end systolic volume is 31 ml, and the ejection fraction is 62 %. IMPRESSION: No stress induced ischemia.
--- NOTE | 2018-02-11 12:51 | TREADPHA ---
DX: CHEST PAIN Date of Study: 02/11/2018 Ht: 5 4 Wt: 230 lb 11.2 oz Consulting Physician: MARIELA MEDICATIONS: TYLENOL, NORCO, ZYLOPRIM, ASPIRIN, LIPITOR, FLEXERIL, LOVENOX, FOLIC ACID, PLAQUENIL, COZAAR, MAGNESIUM OXIDE, GLUCOPHAGE, BYSTOLIC, PROTONIX, FISH OIL HISTORY: 67 YEAR OLD FEMALE WITH COMPLAINTS OF CHEST PAIN. HISTORY OF NON-INSULIN DEPENDENT DIABETES MELLITUS AND HYPERTENSION. PHYSICIAL EXAMINATION: RESTING B.P.: 141/79 RESTING H.R.: 78 RESTING EKG: NORMAL PROTOCOL: LEXISCAN EXERCISE TIME: 3:30 B.P. AT PEAK STRESS: 143/78 IMPRESSION: LEXISCAN INJECTED PER PROTOCOL, FOLLOWED BY CARDIOLITE PER PROTOCOL. SEE NUCLEAR MEDICINE NOTE. NO SUPRAVENTRICULAR TACHYCARDIA. NO VENTRICULAR TACHYCARDIA. NO PREMATURE ATRIAL COMPLEXES. NO PREMATURE VENTRICULAR COMPLEXES. NO CHEST PAIN REPORTED. NON-DIAGNOSTIC ELECTROCARDIOGRAM WITH LEXISCAN STRESS.
--- NOTE | 2018-02-11 13:05 | ECHO ---
HEIGHT: 5 ft 4 in WEIGHT: 230 lb 11.2 oz DATE OF STUDY: 02/11/[address]: Barrie Lozano MD 2-DIMENSIONAL: YES M.MODE: YES DOPPLER: YES COLOR FLOW: YES TDS: PORTABLE: DEFINITY: BUBBLE STUDY: DIAGNOSIS: CHEST PAIN CARDIAC HISTORY: CATHERIZATION: SURGERY: PROSTHETIC VALVE: PACEMAKER: MEASUREMENTS (cm) DIASTOLIC (NORMALS) SYSTOLIC (NORMALS) IVSd 1.2 (0.6-1.2) LA Diam 3.7 (1.9-4.0) LVEF 67% LVIDd 3.9 (3.5-5.7) LVIDs 2.5 (2.0-3.5) %FS 36% LVPWd 1.1 (0.6-1.2) Ao Diam 2.5 (2.0-3.7) 2 DIMENSIONAL ASSESSMENT: RIGHT ATRIUM: NORMAL LEFT ATRIUM: NORMAL RIGHT VENTRICLE: NORMAL LEFT VENTRICLE: NORMAL TRICUSPID VALVE: NORMAL MITRAL VALVE: NORMAL PULMONIC VALVE: NORMAL AORTIC VALVE: NORMAL PERICARDIAL EFFUSION: NONE AORTIC ROOT: NORMAL LEFT VENTRICULAR WALL MOTION: NORMAL DOPPLER/COLOR FLOW: PHYSIOLOGIC TRICUSPID REGURGITATION. NORMAL RIGHT VENTRICULAR SYSTOLIC PRESSURE. IMPAIRED LEFT VENTRICULAR RELAXATION. COMMENTS: NORMAL 2-DIMENSIONAL ECHOCARDIOGRAM. IMPAIRED LEFT VENTRICULAR RELAXATION. TECHNOLOGIST: EZRA PRAJAPATI
[2018-02-11 14:56] VITALS: BP 153/80; TEMP 97
== END 2018-02-11 14:08 | disposition home or self-care (01) ==
LOC: ER 13:14 → ERHOLD 18:24 → 2ND 19:41
PROVIDERS: ADMIT Family Medicine; ATTEND Hospitalist
DX: R07.89 Other chest pain (principal); E11.9 Type 2 diabetes mellitus without complications; I10 Essential (primary) hypertension; E78.5 Hyperlipidemia, unspecified; G47.33 Obstructive sleep apnea (adult) (pediatric); E66.9 Obesity, unspecified; Z68.39 Body mass index [BMI] 39.0-39.9, adult; M10.9 Gout, unspecified; K21.9 Gastro-esophageal reflux disease without esophagitis; Z96.651 Presence of right artificial knee joint
CPT/HCPCS: 36415 ×2; 71045; 78452; 80048; 80053 ×2; 80061; 80076; 82962 ×7; 83735 ×3; 83880; 84484 ×4; 85025 ×3; 85610; 87086; 87088; 93005; 93017; 93306; 94660; 96374; 99285; A9500; G0378 ×2; J1650 ×2; J2270; J2785; J3475 ×2; 81003; 81015

== ENCOUNTER 2018-05-12 14:13 | Emergency (ER) | payer OTHER ==
[2018-05-12] MEDS ORDERED: DIPHENHYDRAMINE 25 MG TAB/CAP ONE (15:27)
[2018-05-12 15:45] LABS: Absolute Lymphocytes (CBC) 2.4 K/uL (0.7-4.9); Absolute Monocytes 0.6 K/uL (0.1-1.3); Absolute Neutrophil 3.6 K/uL (1.8-8.0); Basophils % 1.2 % (0-1.3); Eosinophils % 3.5 % (0-4.4); Hematocrit 37.5 % (36.0-45.0); Lymphocytes % 34.2 % (15.3-44.8); Monocytes % 9.2 % (3.3-12.3); RBC Red Blood Cell Count 4.63 M/uL (3.86-4.86)
[2018-05-12] MEDS ORDERED: NA CHLORIDE 0.9% 1,000 ML ONE (15:48)
[2018-05-12 16:00] LABS: Albumin 3.2 g/dL (3.4-5.0); Bilirubin Direct 0.1 mg/dL (0-0.2); Bilirubin Total 0.3 mg/dL (0.2-1.0); Potassium 3.7 mmol/L (3.5-5.1); Protein, Total 7.2 g/dL (6.4-8.2)
--- NOTE | 2018-05-12 17:03 | RAD REPORT ---
EXAM DESCRIPTION: CT - Abdomen Pelvis W Contrast - 05/12/2018 4:42 pm CLINICAL HISTORY: Abdominal pain / left abdominal pain COMPARISON: 2008 TECHNIQUE: Computed axial tomography of the abdomen pelvis was obtained. 100 cc Isovue-300 was admin istered intravenously. Oral contrast was not requested which limits evaluation of bowel. All CT scans are performed using dose optimization technique as appropriate and may include automated exposure control or mA/KV adjustment according to patient size. FINDINGS: AV malformation is present within the lingula. Medial left diaphragmatic hernia contains fat. It measures 6 centimeters. Mild fatty liver . Cholecystectomy The spleen, pancreas, adrenal and left kidney appear unremarkable. Mild right renal cortical thinning The appendix is normal. Umbilical hernia contains fat Minimal stranding is present within the fat adjacent to the descending colon. Diverticula stem from t he colon. IMPRESSION: Minimal descending diverticulitis AV malformation within the lingula
--- NOTE | 2018-05-12 17:38 | ER ---
Nurse's Notes [facility] Name: Adalgisa Adams Age: 68 yrs Sex: Female : 1950 Arrival Date: 05/12/2018 Time: 14:17 Bed 27 Private MD: Diagnosis: Diverticulitis of intestine, part unspecified, without perforation or abscess without bleeding Presentation: 05/12 14:26 Presenting complaint: Patient states: LLQ pain since Sunday, denies N/V/D, describes sg pain as sharp. Transition of care: patient was not received from another setting of care. Onset of symptoms was May 12, 2018. Risk Assessment: Do you want to hurt yourself or someone else? Patient reports no desire to harm self or others. Initial Sepsis Screen: Does the patient meet any 2 criteria? No. Patient's initial sepsis screen is negative. Does the patient have a suspected source of infection? No. Patient's initial sepsis screen is negative. Care prior to arrival: None. 14:26 Method Of Arrival: Ambulatory sg 14:26 Acuity: SHERRIE 3 sg Historical: - Allergies: 14:19 Codeine; sg - Home Meds: 15:03 allopurinol 300 mg Oral tab 1 tab once daily [Active]; atorvastatin 10 mg Oral tab 1 rv tab once daily [Active]; Bystolic 10 mg Oral tab 1 tab once daily [Active]; Calcium Citrate Oral daily [Active]; cyclobenzaprine 5 mg Oral tab 1 tab 3 times per day [Active]; hydrochlorothiazide 25 mg Oral tab 1 tab 2 times per day [Active]; losartan 50 mg Oral tab 1 tab once daily for Hypertension [Active]; Magnesium Oxide Oral daily [Active]; metformin 850 mg Oral tab 1 tab 2 times per day [Active]; methscopolamine 5 mg Oral tab 1 tab daily [Active]; Grady-3 Oral twice a day [Active]; omeprazole 20 mg Oral cpDR 1 cap once daily [Active]; Trulicity 1.5 mg/0.5 mL subcutaneous pnij once wkly for Type 2 Diabetes Mellitus [Active]; - PMHx: 14:19 Diabetes - NIDDM; Hypertension; sg - PSHx: 15:03 Unable to obtain; rv - Immunization history:: Adult Immunizations not up to date. - Social history:: Smoking status: Patient/guardian denies using tobacco. - Ebola Screening: : Patient negative for fever greater than or equal to 101.5 degrees Fahrenheit, and additional compatible Ebola Virus Disease symptoms Patient denies exposure to infectious person Patient denies travel to an Ebola-affected area in the 21 days before illness onset No symptoms or risks identified at this time. Screenin:59 Abuse screen: Denies threats or abuse. Denies injuries from another. Nutritional rv screening: No deficits noted. Tuberculosis screening: No symptoms or risk factors identified. Fall Risk None identified. Assessment: 14:58 General: Appears in no apparent distress. comfortable, Behavior is calm, cooperative. rv Pain: Complains of pain in left side pain. Neuro: Level of Consciousness is awake, alert, obeys commands, Oriented to person, place, time, situation. Cardiovascular: Capillary refill < 3 seconds. Respiratory: Airway is patent. GI: No signs and/or symptoms were reported involving the gastrointestinal system. : No signs and/or symptoms were reported regarding the genitourinary system. EENT: No signs and/or symptoms were reported regarding the EENT system. Derm: Skin is intact. Musculoskeletal: Reports pain in side pain, left. 16:24 Reassessment: Patient appears in no apparent distress at this time. Patient and/or rv family updated on plan of care and expected duration. Pain level reassessed. Patient is alert, oriented x 3, equal unlabored respirations, skin warm/dry/pink. awaiting CT scan. Vital Signs: 14:25 Pulse 85; Resp 17; Temp 98.1; Pulse Ox 98% ; Pain 8/10; sg 14:30 BP 152 / 80; sg 15:00 BP 113 / 69 RA; Pulse 83; Resp 18 S; Pulse Ox 98% on R/A; rv 15:30 BP 113 / 75 LA; Pulse 79; Resp 16 S; Pulse Ox 97% on R/A; rv 16:00 BP 113 / 74 LA; Pulse 77; Resp 13 S; Pulse Ox 98% on R/A; rv 18:00 BP 113 / 74; Pulse 77; Resp 18; Pulse Ox 98% on R/A; rv ED Course: 14:17 Patient arrived in ED. ds1 14:26 Arm band placed on. sg 14:27 Triage completed. sg 14:44 Angela Nuñez FNP-C is PHCP. kb 14:44 Darrin Dhaliwal MD is Attending Physician. kb 14:59 Patient has correct armband on for positive identification. Placed in gown. Bed in low rv position. Call light in reach. Side rails up X 1. Pulse ox on. NIBP on. 15:20 Inserted saline lock: 18 gauge in right antecubital area, using aseptic technique. rv Blood collected. 15:32 Basic Metabolic Panel Sent. rv 15:32 CBC with Diff Sent. rv 15:33 Hepatic Function Sent. rv 15:33 Lipase Sent. rv 16:[address] kw1 16:40 CT completed. Patient tolerated procedure well. Patient moved back from CT. kw1 16:42 CT Abd/Pelvis - W/Contrast In Process Unspecified. EDMS 18:01 No provider procedures requiring assistance completed. IV discontinued, bleeding rv controlled, No redness/swelling at site. Pressure dressing applied. Administered Medications: 18:02 Drug: Cipro 500 mg Route: PO; rv 18:02 Follow up: Response: Medication administered at discharge. rv 18:02 Drug: Flagyl 500 mg Route: PO; rv 18:02 Follow up: Response: Medication administered at discharge. rv Outcome: 17:38 Discharge ordered by . kb 18:01 Discharged to home ambulatory. rv 18:01 Condition: good 18:01 Discharge instructions given to patient, Instructed on discharge instructions, follow up and referral plans. medication usage, Demonstrated understanding of instructions, follow-up care, medications, Prescriptions given X 3. 18:01 Patient left the ED. rv Signatures: Dispatcher [employer] EDME Angela Nuñez, FILLER IN-C FILLER IN-Jose Francisco Zimmerman, TAMMY RN Bria Del Valle ds1 Cheyenne Cerda kw1 Ant Tracy RN RN rv Corrections: (The following items were deleted from the chart) 16:23 15:00 BP 113 / 69; Pulse 83bpm; Right ArmResp 18bpm; Spontaneous; Pulse Ox 98% RA; rv rv 16:23 15:30 BP 113 / 75; Pulse 79bpm; Left ArmResp 16bpm; Spontaneous; Pulse Ox 97% RA; rv rv
--- NOTE | 2018-05-12 17:38 | EDPHYS ---
Physician Documentation [facility] Name: Adalgisa Adams Age: 68 yrs Sex: Female : 1950 Arrival Date: 05/12/2018 Time: 14:17 Bed 27 Private MD: ED Physician Darrin Dhaliwal HPI: 05/12 16:21 This 68 yrs old Black Female presents to ER via Ambulatory with complaints of Side Pain.kb 16:26 The patient presents with abdominal pain in the left lower quadrant. Onset: The kb symptoms/episode began/occurred 3 day(s) ago. The symptoms do not radiate. Associated signs and symptoms: none. The symptoms are described as constant. Modifying factors: The symptoms are alleviated by nothing, the symptoms are aggravated by nothing. Severity of pain: At its worst the pain was moderate in the emergency department the pain is unchanged. The patient has not experienced similar symptoms in the past. The patient has not recently seen a physician. Historical: - Allergies: 14:19 Codeine; sg - Home Meds: 15:03 allopurinol 300 mg Oral tab 1 tab once daily [Active]; atorvastatin 10 mg Oral tab 1 rv tab once daily [Active]; Bystolic 10 mg Oral tab 1 tab once daily [Active]; Calcium Citrate Oral daily [Active]; cyclobenzaprine 5 mg Oral tab 1 tab 3 times per day [Active]; hydrochlorothiazide 25 mg Oral tab 1 tab 2 times per day [Active]; losartan 50 mg Oral tab 1 tab once daily for Hypertension [Active]; Magnesium Oxide Oral daily [Active]; metformin 850 mg Oral tab 1 tab 2 times per day [Active]; methscopolamine 5 mg Oral tab 1 tab daily [Active]; Alanson-3 Oral twice a day [Active]; omeprazole 20 mg Oral cpDR 1 cap once daily [Active]; Trulicity 1.5 mg/0.5 mL subcutaneous pnij once wkly for Type 2 Diabetes Mellitus [Active]; - PMHx: 14:19 Diabetes - NIDDM; Hypertension; sg - PSHx: 15:03 Unable to obtain; rv - Immunization history:: Adult Immunizations not up to date. - Social history:: Smoking status: Patient/guardian denies using tobacco. - Ebola Screening: : Patient negative for fever greater than or equal to 101.5 degrees Fahrenheit, and additional compatible Ebola Virus Disease symptoms Patient denies exposure to infectious person Patient denies travel to an Ebola-affected area in the 21 days before illness onset No symptoms or risks identified at this time. ROS: 16:19 Constitutional: Negative for fever, chills, and weight loss, Cardiovascular: Negative kb for chest pain, palpitations, and edema, Respiratory: Negative for shortness of breath, cough, wheezing, and pleuritic chest pain, Back: Negative for injury and pain, : Negative for injury, bleeding, discharge, and swelling, MS/Extremity: Negative for injury and deformity, Skin: Negative for injury, rash, and discoloration, Neuro: Negative for headache, weakness, numbness, tingling, and seizure. 16:19 Abdomen/GI: Positive for abdominal pain, Negative for nausea, vomiting, and diarrhea. Exam: 16:20 Constitutional: This is a well developed, well nourished patient who is awake, alert, kb and in no acute distress. Head/Face: Normocephalic, atraumatic. Chest/axilla: Normal chest wall appearance and motion. Nontender with no deformity. No lesions are appreciated. Cardiovascular: Regular rate and rhythm with a normal S1 and S2. No gallops, murmurs, or rubs. Normal PMI, no JVD. No pulse deficits. Respiratory: Lungs have equal breath sounds bilaterally, clear to auscultation and percussion. No rales, rhonchi or wheezes noted. No increased work of breathing, no retractions or nasal flaring. Skin: Warm, dry with normal turgor. Normal color with no rashes, no lesions, and no evidence of cellulitis. MS/ Extremity: Pulses equal, no cyanosis. Neurovascular intact. Full, normal range of motion. Neuro: Awake and alert, GCS 15, oriented to person, place, time, and situation. Cranial nerves II-XII grossly intact. Motor strength 5/5 in all extremities. Sensory grossly intact. Cerebellar exam normal. Normal gait. 16:20 Abdomen/GI: Inspection: abdomen appears normal, Bowel sounds: normal, in all quadrants, Palpation: soft, in all quadrants, mild abdominal tenderness, in the left upper quadrant and left lower quadrant. Vital Signs: 14:25 Pulse 85; Resp 17; Temp 98.1; Pulse Ox 98% ; Pain 8/10; sg 14:30 BP 152 / 80; sg 15:00 BP 113 / 69 RA; Pulse 83; Resp 18 S; Pulse Ox 98% on R/A; rv 15:30 BP 113 / 75 LA; Pulse 79; Resp 16 S; Pulse Ox 97% on R/A; rv 16:00 BP 113 / 74 LA; Pulse 77; Resp 13 S; Pulse Ox 98% on R/A; rv 18:00 BP 113 / 74; Pulse 77; Resp 18; Pulse Ox 98% on R/A; rv MDM: 14:44 Patient medically screened. kb 16:19 Data reviewed: vital signs, nurses notes. Data interpreted: Pulse oximetry: on room air kb is 97 %. Interpretation: normal. 17:36 Counseling: I had a detailed discussion with the patient and/or guardian regarding: the kb historical points, exam findings, and any diagnostic results supporting the discharge/admit diagnosis, lab results, radiology results, the need for outpatient follow up, a family practitioner, a edge setter, to return to the emergency department if symptoms worsen or persist or if there are any questions or concerns that arise at home. ED course: Pt given return precautions including increased pain, vomiting, inability to tolerate medications, fever. Verbal understanding received. . 05/12 15:19 Order name: Basic Metabolic Panel; Complete Time: 16:10 kb 05/12 15:19 Order name: CBC with Diff; Complete Time: 15:56 kb 05/12 15:19 Order name: Hepatic Function; Complete Time: 16:10 kb 05/12 15:19 Order name: Lipase; Complete Time: 16:10 kb 05/12 15:38 Order name: Urine Dipstick--Ancillary (enter results) ms 05/12 16:19 Order name: CT Abd/Pelvis - W/Contrast; Complete Time: 17:23 kb 05/12 15:19 Order name: IV Saline Lock; Complete Time: 15:32 kb 05/12 15:19 Order name: Labs collected and sent; Complete Time: 15:32 kb Administered Medications: 18:02 Drug: Cipro 500 mg Route: PO; rv 18:02 Follow up: Response: Medication administered at discharge. rv 18:02 Drug: Flagyl 500 mg Route: PO; rv 18:02 Follow up: Response: Medication administered at discharge. rv Disposition: 05/13 07:58 Co-signature as Attending Physician, Darrin Dhaliwal MD I agree with the assessment and deedee plan of care. Disposition: 05/12/18 17:38 Discharged to Home. Impression: Diverticulitis of intestine, part unspecified, without perforation or abscess without bleeding. - Condition is Stable. - Discharge Instructions: Diverticulitis, [id number]. - Prescriptions for Flagyl 500 mg Oral Tablet - take 1 tablet by ORAL route every 8 hours for 10 days; 30 tablet. Zofran 4 mg Oral Tablet - take 1 tablet by ORAL route every 6 hours As needed; 20 tablet. Cipro 500 mg Oral Tablet - take 1 tablet by ORAL route every 12 hours for 10 days; 20 tablet. Diclofenac Sodium 75 mg Oral Tablet, Delayed Release (E.C.) - take 1 tablet by ORAL route 2 times per day As needed; 30 tablet. - Medication Reconciliation Form, Thank You Letter, Antibiotic Education, Prescription Opioid Use form. - Follow up: Emergency Department; When: As needed; Reason: Worsening of condition. Follow up: Private Physician; When: 2 - 3 days; Reason: Recheck today's complaints, Continuance of care, Re-evaluation by your physician. Signatures: Dispatcher [employer] EDMS Angela Nuñez, YOU-C YOU-Jose Francisco Zimmerman RN RN sg Anderson, Corey, MD MD cha Vicente, Ronaldo, RN RN rv Corrections: (The following items were deleted from the chart) 05/12 18:01 17:38 05/12/2018 17:38 Discharged to Home. Impression: Diverticulitis of intestine, rv part unspecified, without perforation or abscess without bleeding. Condition is Stable. Forms are Medication Reconciliation Form, Thank You Letter, Antibiotic Education, Prescription Opioid Use. Follow up: Emergency Department; When: As needed; Reason: Worsening of condition. Follow up: Private Physician; When: 2 - 3 days; Reason: Recheck today's complaints, Continuance of care, Re-evaluation by your physician. kb
[2018-05-12] MEDS ORDERED: metroNIDAZOLE 500 MG TABLET ONE (18:01)
[2018-05-12] MEDS ORDERED: CIPROFLOXACIN HCL 500 MG TAB ONE (18:01)
[2018-05-12 19:19] VITALS: TEMP 98.1
[2018-05-12 19:24] VITALS: BP 113/74; O2SAT 98
[2018-05-12 20:38] LABS: Urine Blood NEGATIVE (NEG); Urine Glucose NEGATIVE (NEG); Urine Protein NEGATIVE (NEG); Urine Specific Gravity 1.015 (1.005-1.030)
== END 2018-05-12 18:01 | disposition home or self-care (01) ==
LOC: ER 14:13
DX: K57.92 Diverticulitis of intestine, part unspecified, without perforation or abscess without bleeding (principal); E11.9 Type 2 diabetes mellitus without complications; I10 Essential (primary) hypertension; Z79.84 Long term (current) use of oral hypoglycemic drugs
CPT/HCPCS: 36415; 74177; 80048; 80076; 81003; 83690; 85025; 99284; J7030; Q9967

== ENCOUNTER 2019-04-30 12:30 | Emergency (ER) | payer OTHER ==
--- OUTSIDE RECORDS SUMMARY | 2019-04-30 12:31 | XMS REPORT ---
:1950 [facility] Address [address] [place] [address] Care Team Providers Name Role Phone Unavailable Unavailable Unavailable Problems This patient has no known problems. Allergies, Adverse Reactions, Alerts This patient has no known allergies or adverse reactions. Medications This patient has no known medications. Encounters Start End Encounter Admission Attending Care Care Encounter Date/Time Date/Time Type Type Clinicians Facility Department ID 2018-07-04 2018-07-04 Outpatient [id number] 10:45:00 10:45:00
--- NOTE | 2019-04-30 13:19 | RAD REPORT ---
EXAM DESCRIPTION: RAD - Hand Left 3 View - 04/30/2019 1:10 pm CLINICAL HISTORY: Nontraumatic left hand pain and swelling COMPARISON: None. FINDINGS: No fracture, dislocation or periosteal reaction noted. Mild radiocarpal joint space narrow ing present. Moderately advanced degenerative changes are present at the scaphoid trapezium articulat ion. Severe degenerative change present at the trapezii M first metacarpal articulation. There is rem odeling of the contours of the trapezium and scaphoid bone along with bony spurring. Degenerative deedee nge at the carpal metacarpal joint spaces second-fifth present but relatively mild. The patient has f irst, second and fifth MCP joint space narrowing without spurring or erosive component. There is mini mal spurring along the articular margins of the third metatarsal head. Patient has very advanced degenerative change at all of the IP joints. This is most pronounced at the second PIP joint. Large marginal spurs are present. There is joint space narrowing. No erosive or de structive component. Soft tissues around the second- fourth PIP joints prominent. No soft tissue calcifications peer IMPRESSION: Patient has very advanced degenerative changes in the hand as detailed. No fracture or acute finding seen.
[2019-04-30] MEDS ORDERED: METHYLPREDNISOLONE 125 MG INJ ONE (14:42)
[2019-04-30] MEDS ORDERED: COLCHICINE 0.6 MG TAB ONE (14:43)
[2019-04-30] MEDS ORDERED: HYDROCODONE/APAP 10/325 TAB ONE (14:43)
[2019-04-30 14:55] LABS: Absolute Lymphocytes (CBC) 2.1 K/uL (0.7-4.9); Basophils % 1.3 % (0-1.3); Hematocrit 40.4 % (36.0-45.0); Lymphocytes % 19.2 % (15.3-44.8); MPV 7.8 fL (7.6-11.3); RBC Red Blood Cell Count 5.08 M/uL (3.86-4.86)
[2019-04-30 15:13] LABS: Potassium 3.9 mmol/L (3.5-5.1); Uric Acid 3.7 mg/dL (2.6-6.0)
--- NOTE | 2019-04-30 15:45 | EDPHYS ---
Physician Documentation [facility] Name: Adalgisa Adams Age: 69 yrs Sex: Female : 1950 Arrival Date: 04/30/2019 Time: 12:32 Bed 13 Private MD: Chucky Albrecht B ED Physician Brayden Gordon HPI: 04/30 17:14 This 69 yrs old Black Female presents to ER via Ambulatory with complaints of Hand Pain.kdr 17:14 The patient or guardian reports decreased range of motion, pain, swelling, tenderness. kdr The complaints affect the dorsum of left hand. Context: The problem was sustained at home, resulted from an unknown cause, Concerned that it may be a recurrence of gout. Onset: The symptoms/episode began/occurred suddenly, this morning. Modifying factors: The symptoms are alleviated by nothing, the symptoms are aggravated by movement. Associated signs and symptoms: The patient has no apparent associated signs or symptoms. Severity of symptoms: At their worst the symptoms were moderate, in the emergency department the symptoms are unchanged. The patient has not experienced similar symptoms in the past, Other than with her gout flares. The patient has not recently seen a physician. Historical: - Allergies: 12:51 Codeine; ca1 - Home Meds: 12:51 allopurinol 300 mg Oral tab 1 tab once daily [Active]; atorvastatin 20 mg oral tab 1 ca1 tab once daily [Active]; Bystolic 10 mg Oral tab 1 tab once daily [Active]; metformin 500 mg oral tab 1 tab daily [Active]; Trulicity 1.5 mg/0.5 mL subcutaneous pnij once wkly for Type 2 Diabetes Mellitus [Active]; lisinopril 5 mg Oral tab 1 tab once daily [Active]; Vascepa 1 gram oral cap 2 caps 2 times per day [Active]; levothyroxine 50 mcg tab 1 tab once daily [Active]; aspirin 81 mg Oral chew 1 tab once daily [Active]; omeprazole 20 mg Oral cpDR 1 cap once daily [Active]; - PMHx: 12:51 Diabetes - NIDDM; Hypertension; ca1 - PSHx: 12:51 Knee Replacement R; Carpal Tunnel Repair; ca1 - Immunization history:: Adult Immunizations up to date, Pneumococcal vaccine is up to date, Flu vaccine is up to date. - Coronavirus screen:: The patient has NOT traveled to [place] in the past 14 days. The patient has NOT had contact with known/suspected case of Coronavirus?. - Social history:: Smoking status: Patient denies any tobacco usage or history of. - Ebola Screening: : Patient negative for fever greater than or equal to 101.5 degrees Fahrenheit, and additional compatible Ebola Virus Disease symptoms Patient denies exposure to infectious person Patient denies travel to an Ebola-affected area in the 21 days before illness onset No symptoms or risks identified at this time. ROS: 17:14 Constitutional: Negative for fever, chills, and weight loss, Eyes: Negative for injury, kdr pain, redness, and discharge. 17:14 MS/extremity: Positive for decreased range of motion, pain, swelling, tenderness, warmth, of the dorsum of left hand. Exam: 17:14 Constitutional: This is a well developed, well nourished patient who is awake, alert, kdr and in no acute distress. Head/Face: Normocephalic, atraumatic. Eyes: Pupils equal round and reactive to light, extra-ocular motions intact. Lids and lashes normal. Conjunctiva and sclera are non-icteric and not injected. Cornea within normal limits. Periorbital areas with no swelling, redness, or edema. Neck: Trachea midline, no thyromegaly or masses palpated, and no cervical lymphadenopathy. Supple, full range of motion without nuchal rigidity, or vertebral point tenderness. No Meningismus. Chest/axilla: Normal chest wall appearance and motion. Nontender with no deformity. No lesions are appreciated. Cardiovascular: Regular rate and rhythm with a normal S1 and S2. No gallops, murmurs, or rubs. Normal PMI, no JVD. No pulse deficits. Respiratory: Lungs have equal breath sounds bilaterally, clear to auscultation and percussion. No rales, rhonchi or wheezes noted. No increased work of breathing, no retractions or nasal flaring. 17:14 Musculoskeletal/extremity: Extremities: noted in the dorsum of left hand: decreased ROM, deformity, pain, swelling, tenderness. Vital Signs: 12:51 BP 149 / 89; Pulse 88; Resp 16 S; Temp 97.3(TE); Pulse Ox 96% on R/A; Weight 107.95 kg ca1 (R); Height 5 ft. 4 in. (162.56 cm) (R); 15:42 BP 136 / 78; Pulse 72; Resp 18; Pulse Ox 96% on R/A; ph 12:51 Body Mass Index 40.85 (107.95 kg, 162.56 cm) ca1 MDM: 15:44 Patient medically screened. kdr 17:14 Differential diagnosis: closed fracture, contusion, abrasion, tendonitis. Data kdr reviewed: vital signs, nurses notes, lab test result(s), radiologic studies. Counseling: I had a detailed discussion with the patient and/or guardian regarding: the historical points, exam findings, and any diagnostic results supporting the discharge/admit diagnosis, lab results, radiology results, the need for outpatient follow up. Special discussion: I discussed with the patient/guardian in detail that at this point there is no indication for admission to the hospital. It is understood, however, that if the symptoms persist or worsen the patient needs to return immediately for re-evaluation. 04/30 14:31 Order name: CBC with Diff kdr 04/30 14:31 Order name: Chem 7 kdr 04/30 14:31 Order name: Uric Acid kdr 04/30 14:31 Order name: ESR kdr 04/30 15:06 Order name: CBC with Automated Diff; Complete Time: 15:35 EDMS 04/30 15:13 Order name: Sedimentation Rate, Westergren; Complete Time: 15:35 EDMS 04/30 12:52 Order name: XRAY Hand LEFT 3 View ca1 04/30 13:21 Order name: RAD; Complete Time: 14:26 EDMS 04/30 15:14 Order name: Basic Metabolic Panel; Complete Time: 15:35 EDMS 04/30 15:14 Order name: Uric Acid; Complete Time: 15:35 EDMS Administered Medications: 14:40 Drug: [place] 10 mg-325 mg 1 tabs Route: PO; ph 16:09 Follow up: Response: No adverse reaction; Pain is decreased ph 14:40 Drug: SOLU-Medrol 60 mg Route: IVP; Site: right antecubital; ph 16:09 Follow up: Response: No adverse reaction ph 14:40 Drug: Colchicine-Probenecid 2 tabs Route: PO; ph 16:09 Follow up: Response: No adverse reaction ph Disposition: 04/30/19 15:44 Discharged to Home. 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 - Condition is Stable. - Discharge Instructions: Arthritis, [id number]. - Prescriptions for Ibuprofen 600 mg Oral Tablet - take 1 tablet by ORAL route every 6 hours As needed take with food; 15 tablet. Prednisone 20 mg Oral Tablet - take 1 tablet by ORAL route once daily for 3 days; 3 tablet. Tramadol 50 mg Oral Tablet - take 1 tablet by ORAL route every 8 hours as needed; 12 tablet. - Medication Reconciliation Form, Thank You Letter, Prescription Opioid Use form. - Follow up: Chucky Albrecht MD; When: 2 - 3 days; Reason: If symptoms return, Further diagnostic work-up, Recheck today's complaints, Continuance of care, Re-evaluation by your physician. - Problem is an ongoing problem. - Symptoms have improved. Signatures: Dispatcher [employer] EDAZ Brayden Gordon MD MD [facility] Laureen Good RN RN Justin, TAMMY Brennan RN ca1 Corrections: (The following items were deleted from the chart) 16:10 15:44 04/30/2019 15:44 Discharged to Home. Impression: Arthritis left hand, 3rd MCP ph joint. Condition is Stable. Forms are Medication Reconciliation Form, Thank You Letter, Antibiotic Education, Prescription Opioid Use. Follow up: Chucky Albrecht; When: 2 - 3 days; Reason: If symptoms return, Further diagnostic work-up, Recheck today's complaints, Continuance of care, Re-evaluation by your physician. Problem is an ongoing problem. Symptoms have improved. kdr
--- NOTE | 2019-04-30 15:45 | ER ---
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 I ca1 have gout on my R foot and arthritis on my hands but not this bad. C/O of L hand pain. Denies injury to L hand. Transition of care: patient was not received from another setting of care. Onset of symptoms was April 30, 2019. Risk Assessment: Do you want to hurt yourself or someone else? Patient reports no desire to harm self or others. Initial Sepsis Screen: Does the patient meet any 2 criteria? No. Patient's initial sepsis screen is negative. Does the patient have a suspected source of infection? No. Patient's initial sepsis screen is negative. Care prior to arrival: None. 12:43 Method Of Arrival: Ambulatory ca1 12:43 Acuity: SHERRIE 4 ca1 Historical: - Allergies: 12:51 Codeine; ca1 - Home Meds: 12:51 allopurinol 300 mg Oral tab 1 tab once daily [Active]; atorvastatin 20 mg oral tab 1 ca1 tab once daily [Active]; Bystolic 10 mg Oral tab 1 tab once daily [Active]; metformin 500 mg oral tab 1 tab daily [Active]; Trulicity 1.5 mg/0.5 mL subcutaneous pnij once wkly for Type 2 Diabetes Mellitus [Active]; lisinopril 5 mg Oral tab 1 tab once daily [Active]; Vascepa 1 gram oral cap 2 caps 2 times per day [Active]; levothyroxine 50 mcg tab 1 tab once daily [Active]; aspirin 81 mg Oral chew 1 tab once daily [Active]; omeprazole 20 mg Oral cpDR 1 cap once daily [Active]; - PMHx: 12:51 Diabetes - NIDDM; Hypertension; ca1 - PSHx: 12:51 Knee Replacement R; Carpal Tunnel Repair; ca1 - Immunization history:: Adult Immunizations up to date, Pneumococcal vaccine is up to date, Flu vaccine is up to date. - Coronavirus screen:: The patient has NOT traveled to [place] in the past 14 days. The patient has NOT had contact with known/suspected case of Coronavirus?. - Social history:: Smoking status: Patient denies any tobacco usage or history of. - Ebola Screening: : Patient negative for fever greater than or equal to 101.5 degrees Fahrenheit, and additional compatible Ebola Virus Disease symptoms Patient denies exposure to infectious person Patient denies travel to an Ebola-affected area in the 21 days before illness onset No symptoms or risks identified at this time. Screenin:02 Abuse screen: Denies threats or abuse. Denies injuries from another. Nutritional ph screening: No deficits noted. Tuberculosis screening: No symptoms or risk factors identified. Fall Risk None identified. Assessment: 14:00 General: Appears in no apparent distress. comfortable, well groomed, Behavior is calm, ph cooperative, appropriate for age, Denies fever. Pain: Complains of pain in left hand. Neuro: Level of Consciousness is awake, alert, obeys commands, Oriented to person, place, time, situation. Cardiovascular: Capillary refill < 3 seconds in bilateral Patient's skin is warm and dry. Respiratory: Airway is patent Respiratory effort is even, unlabored. Derm: Skin is intact, Skin is pink, warm \T\ dry. Musculoskeletal: Circulation, motion, and sensation intact. Range of motion: intact in all extremities, Swelling present in dorsum of left hand. 15:18 Reassessment: Patient appears in no apparent distress at this time. Patient and/or ph family updated on plan of care and expected duration. Pain level reassessed. Patient is alert, oriented x 3, equal unlabored respirations, skin warm/dry/pink. 16:01 Reassessment: Patient appears in no apparent distress at this time. Patient and/or ph family updated on plan of care and expected duration. Pain level reassessed. Patient is alert, oriented x 3, equal unlabored respirations, skin warm/dry/pink. Pt reports that pain has decreased after pain meds, pt d/c home w/ family. Vital Signs: 12:51 BP 149 / 89; Pulse 88; Resp 16 S; Temp 97.3(TE); Pulse Ox 96% on R/A; Weight 107.95 kg ca1 (R); Height 5 ft. 4 in. (162.56 cm) (R); 15:42 BP 136 / 78; Pulse 72; Resp 18; Pulse Ox 96% on R/A; ph 12:51 Body Mass Index 40.85 (107.95 kg, 162.56 cm) ca1 ED Course: 12:32 Patient arrived in ED. ag5 12:32 Chucky Albrecht MD is Private Physician. ag5 12:44 [facility] Nu[facility] kb 12:44 Brayden Gordon MD is Attending Physician. kb 12:45 Triage completed. ca1 12:51 Arm band placed on right wrist. ca1 13:30 Patient has correct armband on for positive identification. Bed in low position. Call ph light in reach. Side rails up X 1. Pulse ox on. NIBP on. Door closed. Noise minimized. Warm blanket given. 13:50 Brayden Gordon MD is Attending Physician. kdr 14:17 Laureen Good RN is Primary Nurse. ph 14:41 Initial lab(s) drawn, by co, sent to lab. Inserted saline lock: 20 gauge in right dh3 antecubital area, using aseptic technique. Blood collected. 15:42 Chucky Albrecht MD is Referral Physician. kdr 16:07 No provider procedures requiring assistance completed. IV discontinued, intact, ph bleeding controlled, No redness/swelling at site. Pressure dressing applied. Administered Medications: 14:40 Drug: [place] 10 mg-325 mg 1 tabs Route: PO; ph 16:09 Follow up: Response: No adverse reaction; Pain is decreased ph 14:40 Drug: SOLU-Medrol 60 mg Route: IVP; Site: right antecubital; ph 16:09 Follow up: Response: No adverse reaction ph 14:40 Drug: Colchicine-Probenecid 2 tabs Route: PO; ph 16:09 Follow up: Response: No adverse reaction ph Outcome: 15:44 Discharge ordered by MD. kdr 16:08 Discharged to home ambulatory, with family. ph 16:08 Condition: good 16:08 Discharge instructions given to patient, Instructed on discharge instructions, follow up and referral plans. medication usage, Demonstrated understanding of instructions, follow-up care, medications, Prescriptions given X 3. 16:10 Patient left the ED. ph Signatures: Angela Nuñez FNP-C [facility] RO[facility] ATTENDANT-Ckb Rittger, BraydenMD MD haroon red Patricia RN RN ph Charles, Taylor 3 Anu Anderson RN RN ca1 Tarun, Tad 5
[2019-05-01 21:10] VITALS: TEMP 97.3; O2SAT 96
[2019-05-01 21:11] VITALS: BP 136/78
== END 2019-04-30 16:10 | disposition home or self-care (01) ==
LOC: ER 12:30
DX: M19.042 Primary osteoarthritis, left hand (principal); I10 Essential (primary) hypertension; E11.9 Type 2 diabetes mellitus without complications; Z79.82 Long term (current) use of aspirin; Z79.4 Long term (current) use of insulin; Z88.5 Allergy status to narcotic agent
CPT/HCPCS: 85025; 80048; 36415; 84550; 85652; 73130; 96374; 99284; J2930

== ENCOUNTER 2019-08-09 17:41 | Emergency (ER) | payer OTHER ==
--- OUTSIDE RECORDS SUMMARY | 2019-08-09 17:44 | XMS REPORT ---
:1950 [address] [facility] t Address [address] [place] [address] Care Team Providers Name Role Phone Staci STANTON Attending Clinician Problems This patient has no known problems. Allergies, Adverse Reactions, Alerts This patient has no known allergies or adverse reactions. Medications This patient has no known medications. Procedures This patient has no known procedures. Encounters Start End Encounter Admission Attending Care Care Encounter Source Date/Time Date/Time Type Type Clinicians Facility Department ID 2019-06-10 2019-06-10 [facility] [id number] 08:19:53 10:07:11 ne Visit [facility] [id number] [facility] [id number] [facility] [id number] [facility] 2018-07-04 2018-07-04 Outpatient [id number] 10:45:00 10:45:00 Results This patient has no known results.
--- OUTSIDE RECORDS SUMMARY | 2019-08-09 17:44 | XMS REPORT | Summary of Care ---
:1950 Author Organization [facility] Address [address] [place] [address] Care Team Providers Name Role Phone Unavailable Primary Care Provider Unavailable Reason for Visit Reason Comments Follow-up Encounter Details Date Type Department Care Team Description 06/10/2019 Telemedicine Visit [facility] Romulo Deleon MD [address] [place], [place] [phone] Erosive osteoarthritis (Primary Dx); Rheumatology-Zachary Gonsalez MD [address] [place], [place] [id number] [place], [place] [phone] Primary osteoarthritis involving multipl e joints; [facility] Multispecialty Burton Small MD [address] [place] [address]. [place] [address] Sicca, unspecified type; Ctr Chronic gout of foot, unspec ified cause, unspecified laterality; [facility] Pain in lindy th hands; [facility] Long-term use of Plaquenil; [place], [place] Long-term us e of high-risk medication; [address] Vitamin D deficiency [phone] Allergies Active Allergy Reactions Severity Noted Date Comments Codeine Rash 02/26/2017 documented as of this encounter (statuses as of 06/10/2019) Medications Medication Sig Dispensed Refills Start End Date Status Date metFORMIN 850 mg Take 850 mg 0 A ctive tablet by mouth 2 (two) times daily with meals. NEBIVOLOL HCL Take by 0 Active (BYSTOLIC ORAL) mouth. foLIC acid 1 mg tablet Take 1 mg by 0 Active mouth daily. L. ACIDOPHILUS/BIFIDO Take by 0 Active LONGUM (PROBIOTIC mouth. PEARLS ORAL) cyclobenzaprine 10 mg Take 10 mg 0 Active tablet by mouth 3 (three) times daily. LOVAZA, [id number]-[id number] Take by 0 Active ethyl esters, 1 gram mouth. capsule omeprazole 20 mg Take 20 mg 0 Ac tive capsule by mouth daily. hyoscyamine 0.125 mg Take 0.125 0 Active tablet mg by mouth. atorvastatin 10 mg Take 10 mg 0 Active tablet by mouth at bedtime. aspirin (ASPIRIN LOW Take 81 mg 0 Active DOSE) 81 mg EC tablet by mouth daily. calcium carbonate-mag Take by 0 Active hydroxid 1,000-200 mg mouth. Chew budesonide-formoterol Inhale 2 0 Active (SYMBICORT) 80-4.5 Puffs 2 mcg/actuation inhaler (two) times daily. MAGNESIUM ORAL Take 500 mg 0 Act aga by mouth. OXYMETAZOLINE HCL Use in each 0 Active (SINUS NASAL SPRAY nostril. NASAL) FLUTICASONE 0 Active PROPIONATE, BULK, MISC IMMUNE GLOB/PLASMA FRA Take by 0 Active BOVINE (ENTERAGAM mouth. ORAL) methscopolamine 5 mg Take 5 mg by 0 Active tablet mouth at bedtime. Diclofenac Sodium 1 % Apply 1gram 100 g 2 Active gelIndications: to affected 0 Erosive osteoarthritis area twice daily hydroxychloroquine Take 1 180 tablet 2 Active (PLAQUENIL) 200 mg tablet by 0 tabletIndications: mouth 2 Erosive osteoarthritis (two) times daily with meals. allopurinoL 300 mg Take 1 90 tablet 1 A ctive tabletIndications: tablet by 0 Chronic gout of foot, mouth daily. unspecified cause, unspecified laterality ergocalciferol, Take 50,000 0 06/10/19 Di scontinued vitamin d2, (VITAMIN Units by 20 (Patient D2) 50,000 unit mouth Repo rted) capsule weekly. allopurinol 300 mg Take 300 mg 0 06/10/19 Discontinued tablet by mouth 20 (Reorder) daily. Diclofenac Sodium 1 % Apply 1gram 100 g 1 Discontinued gel to affected 8 20 (Reorder ) area twice daily hydroxychloroquine Take 1 120 tablet 2 06/10/19 Discontinued (PLAQUENIL) 200 mg tablet by 8 20 ( Reorder) tablet mouth 2 (two) times daily with meals. documented as of this encounter (statuses as of 06/10/2019) Active Problems Problem Noted Date Stroke 09/28/2018 Long-term use of Plaquenil 09/25/2017 ESR raised 09/25/2017 Primary osteoarthritis involving multiple joints 08/28 Sicca 08/28/2017 Immunization counseling 08/28/2017 Pain in both hands 08/28/2017 Hypovitaminosis D 08/28/2017 Chronic gout of foot 08/28/2017 documented as of this encounter (statuses as of 06/10/2019) Social History Tobacco Use Types Packs/Day Years Used Date Never Smoker Smokeless Tobacco: Never Used Alcohol Use Drinks/Week oz/Week Comments No Sex Assigned at Date Recorded Not on file Job Start Date Occupation Industry Not on file Not on file Not on file Travel History Travel Start Travel End No recent travel history available. documented as of this encounter Last Filed Vital Signs Not on filedocumented in this encounter Patient Instructions Patient InstructionsBurton Small MD - 06/10/2019 10:00 AM CDTPlease get the labs done Please continue taking Plaquenil 200 mg po BID Please continue using Diclofenac gel topical Please try Glucosamine sulfate over the counter as advised Please discontinue Vitamin D 5000 units since per patient she has taken it for 6 months. Please recheck vitamin D level and c/w Vit D 1000 Units to 2000 Units po Qdaily. Please discuss withPCP. Please follow up with Ophthalmology and PCP (please review all medications with PCP) Rtc in 5-6 months documented in this encounter Progress Notes Burton Small MD - 06/10/2019 10:00 AM CDT TELE HEALTH- Rheumatology Verbal consent obtained from Patient: Adalgisa Adams for telehealth services provided below. Communication with patient was conducted via Telephone. Location of Patient: Home in [place], [place] Location of Provider: Office Total time of Telephone A total of 30 minutes spent on the telephone with the patient. Date of Service: 06/10/2019 Adalgisa Adams JOSE ALEJANDRO: 09/25/2017 Chief Complaint/Reason for Visit: joint pains/sicca HPI/Interval history: Adalgisa Adams is a 69 year old Black or female with past medical history significant for DM/HTN/CAD/HLD. At last visit and per chart review her elbow , shoulder, wrist and ankle, feet , toe, MTP exam was unremarkable as per chart review. Had Heberdens Nodes, had + tenderness over left knee, S/P R TKA Pt was started on Plaquenil 200 mg po BID for erosive OA and ran out of medication in Feb 2019. Says had Ophthalmology exam Apr 07, 2019 non [facility]. Says they dilated her eyes and examined her eyes. Advised patient to follow up with Ophthalmology for Plaquenil toxicity. Says pain in bad in the back and shoulder from OA. Says Plaquenil was not really helping. Says never tried Methotrexate or Sulfasalazine. Says has Diabetes, Pt takes Allopurinol 300 mg po Qdaily , last Gout attack was last month. Says eat red meat and fish every now and then. Takes soda . Denies alcohol, takes apple juice. Advised to avoid red meat , seafood, alcohol, soda, high fructose corn syrup. 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 Last seen 09/25/2017. She has been noting dryness of the mouth and eyes for a year. Uses restasis - has an eye doctor( )- last eye exam 03/2017, diagnosed with dry eyes. No dentist- has plates. Not sure if meds are causing the dryness Has chronic pain over left knee, lower back, recently developed pain over left side of the neck/shoulder. Morning stiffness lasts 5 mins. Uses Tylenol as needed. Lost all her teeth due to poor oral hygiene( no dryness then) Dad with arthritis( ?RA). Has had 2 gouty flares- on allopurinol 300mg daily. Tries to avoid red meat/seafood. Denies fevers/chills/infections Result review: 08/2017: Hgb 12.3, plt 351, Cr 1.1, AST 34, ALT 37, SPEP WNL, Qft/HCV/HIV Neg, YUNG/RF/CCP/SSA/SSB Neg, ESR 36, CRP 1.3, UA 3.6, Vit D 76 Allergies Allergen Reactions Codeine Rash Outpatient Medications Marked as Taking for the 06/10/19 encounter (Telemedicine Visit) with Burton Small MD Medication Sig Dispense Refill allopurinol 300 mg tablet Take 300 mg by mouth daily. aspirin (ASPIRIN LOW DOSE) 81 mg EC tablet Take 81 mg by mouth daily. atorvastatin 10 mg tablet Take 10 mg by mouth at bedtime. budesonide-formoterol (SYMBICORT) 80-4.5 mcg/actuation inhaler Inhale 2 Puffs 2 (two) times daily. calcium carbonate-mag hydroxid 1,000-200 mg Chew Take by mouth. cyclobenzaprine 10 mg tablet Take 10 mg by mouth 3 (three) times daily. foLIC acid 1 mg tablet Take 1 mg by mouth daily. hyoscyamine 0.125 mg tablet Take 0.125 mg by mouth. IMMUNE GLOB/PLASMA FRA BOVINE (ENTERAGAM ORAL) Take by mouth. L. ACIDOPHILUS/BIFIDO LONGUM (PROBIOTIC PEARLS ORAL) Take by mouth. LOVAZA, [id number]-[id number] ethyl esters, 1 gram capsule Take by mouth. MAGNESIUM ORAL Take 500 mg by mouth. methscopolamine 5 mg tablet Take 5 mg by mouth at bedtime. omeprazole 20 mg capsule Take 20 mg by mouth daily. OXYMETAZOLINE HCL (SINUS NASAL SPRAY NASAL) Use in each nostril. metFORMIN 850 mg tablet Take 850 mg by mouth 2 (two) times daily with meals. NEBIVOLOL HCL (BYSTOLIC ORAL) Take by mouth. Tele Health Exam Patient sounded alert and oriented during the tele health visit LABS/IMAGING/OTHER TESTS: Reviewed 09/25/2017 Component Latest Ref Rng & Units 08/29/2017 10:00 AM ALB U EP Negative Component Latest Ref Rng & Units 08/29/2017 9:55 AM ALPHA 1 0.2 - 0.4 g/dL 0.2 ALPHA 2 0.6 - 1.2 g/dL 0.7 BETA 0.7 - 1.4 g/dL 1.3 GAMMA 1.0 - 1.8 g/dL 1.3 Electrophoresis Interpretation Normal serum and urine protein profiles. . . . Component Latest Ref Rng & Units 08/29/2017 9:55 AM WBC x10~3 4.30 - 11.10 10*3/L 11.07 RBC x10~6 3.93 - 5.25 10*6/L 4.75 HGB 11.6 - 15.0 g/dL 12.3 HCT 35.7 - 45.2 % 39.9 MCV 80.6 - 95.5 fL 84.0 MCH 25.9 - 32.8 pg 25.9 MCHC 31.6 - 35.1 g/dL 30.8 (L) RDW-SD 39.0 - 49.9 fL 55.6 (H) RDW-CV 12.0 - 15.5 % 18.4 (H) PLT x10~3 166 - 358 10*3/L 351 MPV 9.5 - 12.9 fL 9.2 (L) NRBC /100 WBC 0.0 - 10.0 /100 WBCs 0.0 NRBC x10~3 10*3/L <0.01 GRAN MAT (NEUT) % % 55.3 IMM GRAN % % 0.40 LYMPH% % 33.1 MONO % % 9.2 EOS % % 1.4 BASO % % 0.6 GRAN MAT x10~3(ANC) 1.88 - 7.09 10*3/uL 6.12 IMM GRAN x10~3 0.00 - 0.06 10*3/uL 0.04 LYMPH x10~3 1.32 - 3.29 10*3/uL 3.66 (H) MONO x10~3 0.33 - 0.92 10*3/uL 1.02 (H) EOS x10~3 0.03 - 0.39 10*3/uL 0.16 BASO x10~3 0.01 - 0.07 10*3/uL 0.07 NA 135 - 145 mmol/L 140 K 3.5 - 5.0 mmol/L 4.1 CL 98 - 108 mmol/L 104 CO2 TOTAL 23 - 31 mmol/L 23 AGAP 2 - 16 13 BUN 7 - 23 mg/dL 23 GLUCOSE 70 - 110 mg/dL 120 (H) CREATININE 0.50 - 1.04 mg/dL 1.10 (H) TOTAL BILI 0.1 - 1.1 mg/dL 0.5 CALCIUM 8.6 - 10.6 mg/dL 9.8 T PROTEIN 6.3 - 8.2 g/dL 7.3 ALBUMIN 3.5 - 5.0 g/dL 4.0 ALK PHOS 34 - 122 U/L 103 ALT(SGPT) 9 - 51 U/L 37 AST(SGOT) 13 - 40 U/L 34 eGFR CALCULATION (non ) mL/min/1.73m2 49.4 eGFR CALCULATION () mL/min/1.73m2 59.9 ALPHA 1 0.2 - 0.4 g/dL ALPHA 2 0.6 - 1.2 g/dL BETA 0.7 - 1.4 g/dL GAMMA 1.0 - 1.8 g/dL Electrophoresis Interpretation Nil IU/mL 0.010 TB Antigen minus Nil IU/mL 0.000 Mitogen minus Nil IU/mL >10.000 QFT Result Negative Negative VIT D 25OH 25 - 80 ng/mL 76 25-Hydroxy D3 ng/mL 61.5 25-Hydroxy D2 ng/mL 14.2 HCV Ab Negative HCV Semi-Quantitative 0.03 HIV Ag-Ab Multiplex Non-reactive Non-reactive HIV Multiplex Semi-quantitative 1 YUNG Negative Negative CCP 0.0 - 20.0 U 9.3 CRP <0.8 mg/dL 1.3 (H) SED RATE 0 - 20 mm/HR 36 (H) G6PD SCREEN Normal Normal RF <20 IU/mL <20 ANTI-SSA Negative Negative ANTI-SSB Negative Negative URIC ACID 2.9 - 6.0 mg/dL 3.9 ALB U EP 08/2017 XRAY HANDS/KNEES Severe knee and bilateral hand osteoarthritis with a component of erosive osteoarthritis involving the hands. Underlying CPPD arthropathy is also not excluded. 08/2017 XRAY L SPINE Frontal and lateral radiographs of lumbar spine were performed. There are 5 nonrib-bearing lumbar type segments. Mild levocurvature of lumbar spine. The vertebral bodies are normal in height and alignment. Lumbar disc are preserved. Mild endplate sclerosis and anterior osteophytes at the inferior endplate of L1 vertebral body. Bulky anterior projecting bridging osteophytes are present at T10-T12. The paraspinal soft tissues are unremarkable. Intact cortical margins of the sacrum and pelvic bones. Cholecystectomy clips are noted. 08/2017 CT THORAX 1. 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 2. AV malformation in the lingula 3. Fatty infiltration of the liver Assessment: 67 year old y/o female with DM/HTN/CAD/HLD. 1. Erosive osteoarthritis 2. Primary osteoarthritis involving multiple joints 3. Sicca, unspecified type 4. Chronic gout of foot, unspecified cause, unspecified laterality 5. Pain in both hands 6. Long-term use of Plaquenil Primary osteoarthritis involving multiple joints (primary encounter diagnosis) Pain in both hands Erosive OA Comment: Likely has OA/mechanical Chronic pain in knees, lower back, shoulders- likely OA No evidence to suggest RA Plan: Check CBC, CMP, CRP, Uric acid, Vit D,(future orders) Use diclofenac gel as needed (refilled) OTC pain meds C/w plaquenil 200m PO BID - May help with erosive OA (refilled) - Ophthalmology follow up advised Reviewed potential toxicities of Plaquenil including retinal toxicity and need for annual retinaleye exams. Patient agrees to proceed after reviewing side effects, benefits and alternatives to this medication. All questions answered. Reviewed potential toxicities of Plaquenil including retinal toxicity and need for annual retinaleye exams. Patient agrees to proceed after reviewing side effects, benefits and alternatives to this medication. All questions answered. Recommend age appropriate malignancy screening Recommend an active lifestyle with regular graded exercise Encourage gentle ROM exercises Consider paraffin wax bath Pain control May consider trial of glucosamine- the effective dose is 1500mg daily for at least 3-6months Evidence is conflicting on actual efficacy of this supplement Turmeric, fish oil, organic apple cider vinegar ( 1 tbsp in a glass of water daily) also has somepossible benefits for arthritic pain Sicca, unspecified type Comment: Likely due to medication, could be autoimmune Plan: Regular dental and eye visits Hypovitaminosis D Comment: H/O low Vit D-on weekly vit Dx 6 months. Plan: Vit D is replete- no need for supplementation Plan: Advised to [place]he[place]. [place] [address] Units po Qweekly and start Vit D 2000 Units po Qdaily correction use of plaquenil Comment: On plaquenil 200mg PO BID Reviewed potential toxicities of Plaquenil including retinal toxicity and need for annual retinal eye exams. Patient agrees to proceed after reviewing side effects, benefits and alternatives to this medication. All questions answered. Plan: needs annual eye exam ESR raised The ESR(inflammatory marker which can be non specific at times) is flagged as abnormal but normal for age. Gout Comment: Diagnosed 3 yrs ago by PCP for Rt great toe. UA 3.9 On Allopurinol 300 mg po Qd Says eats hamburger, fish, soda, apple juice Last Gout attack 1 month ago in Rt foot Plan: -Advised to avoid red meat , seafood, alcohol, soda, high fructose corn syrup. 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 -Purine restricted diet -C/w Allopurinol 300 mg po Qd (says gets it from PCP Dr Albrecht)- since patient was running out ofmedication, refilled for her. RTC 5-6 months After visit summary (AVS ) documentation will be available through [employer] for this encounter. Pt seen with Dr. Devyn Small MD , MPH PGY-5, Rheumatology Fellow- Year 1 06/10/2019 8:48 AM Pager: [phone] [facility] - 06/10/2019 10:00 AM CD06/10/2019 I was immediately available for consultation during all aspects of the telemedicine encounter and after discussion with Dr. Staci MD I agree with resident's note as written. I personally did speak tothe patient during this encounter. MARIMAR SHEPARD MD pager [phone]/ [phone] doctor # [id number] documented in this encounter Plan of Treatment Name Type Priority Associated Diagnoses Order S chedule CBC WITH DIFF LAB Routine Erosive osteoart hritis Expected: 06/10/2019, Long-term use of Expires: high-risk medication COMP. METABOLIC PANEL LAB Routine Erosive os teoarthritis Expected: 06/10/2019, ([id number]) Long-term use of Expires: high-risk medication C-REACTIVE PROTEIN LAB Routine Erosive osteo arthritis Expected: 06/10/2019, Long-term use of Expires: high-risk medication URIC ACID LAB Routine Erosive osteoart hritis Expected: 06/10/2019, Long-term use of Expires: high-risk medication VITAMIN D, 25-OH LAB Routine Erosive osteoar thritis Expected: 06/10/2019, Vitamin D deficiency Expires : 06/09/2020 Health Maintenance Due Date Last Done Comments DTaP,Tdap,and Td Vaccines (1 - Tdap) 02/24/1960 Breast Cancer Screening (MAMMOGRAM) 1989 COLONOSCOPY 1999 Zoster Recombinant Vaccine (SHINGRIX) (1 of 2) 1999 Medicare Wellness Visit 2014 Osteoporosis Screening 2014 PNEUMOCOCCAL VACCINES 65+ (1 of 2 - PCV13) 2014 INFLUENZA VACCINE (#1) 2018 HEPATITIS C (HCV) SCREEN Completed 08/29/2017 documented as of this encounter Implants Implanted Type Area Food Service Coordinator Device Identifier Shelf Exp iration Model / Date Serial / L ot Knee-09/29/2015 KNEE Knee Implanted: 09/29/2015 (Quantity not on file) documented as of this encounter Results Not on filedocumented in this encounter Visit Diagnoses Diagnosis Erosive osteoarthritis - Primary Osteoarthrosis involving, or with mentio n of more than one site, but not specified as generalized, site unspecified Primary osteoarthritis involving multipl e joints Sicca, unspecified type Chronic gout of foot, unspecified cause, unspecified laterality Pain in both hands Long-term use of Plaquenil Long-term use of high-risk medication Vitamin D deficiency Unspecified vitamin D deficiency documented in this encounter Insurance Payer Benefit Plan / Subscriber ID Effective Phone Address T e Group Dates MEDICARE MEDICARE PART A xxxxxxxxxxx 2005-Pre [phone] [address] [place] X Medicare & B sent [phone] [place] [phone] [facility] [id number] 2015-Pre I ndemnity [employer] sent [phone] (Work) documented as of this encounter
--- OUTSIDE RECORDS SUMMARY | 2019-08-09 17:45 | XMS REPORT | Summary of Care ---
:1950 Author Organization [facility] Address [address] [place] [address] Care Team Providers Name Role Phone Unavailable Primary Care Provider Unavailable Reason for Visit Reason Comments Follow-up Encounter Details Date Type Department Care Team Description 06/10/2019 Telemedicine Visit [facility] Romulo Deleon MD [address] [place], [place] [id number] Erosive osteoarthritis (Primary Dx); Rheumatology-Zachary Gonsalez MD [address] [place], [place] [id number] [place], [place] [id number] Primary osteoarthritis involving multipl e joints; [facility] Multispecialty Burton Small MD [address] [place] [address]. [place] [address] Sicca, unspecified type; Ctr Chronic gout of foot, unspec ified cause, unspecified laterality; [facility] Pain in lindy th hands; [facility] Long-term use of Plaquenil; [place], [place] Long-term us e of high-risk medication; [address] Vitamin D deficiency [phone] Allergies Active Allergy Reactions Severity Noted Date [...] by mouth 3 (three) times daily. LOVAZA, [id number] Take by 0 Active ethyl esters, 1 [...] via Telephone. Location of Patient: Home in [place], [place] Location of Provider: Office Total time [...] had Ophthalmology exam Apr 07, 2019 non [facility]. 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 Last seen 09/25/2017. She has been [...] (PROBIOTIC PEARLS ORAL) Take by mouth. LOVAZA, [id number]-[id number] ethyl esters, 1 gram capsule Take by [...] Plan: Advised to recheck Vit D. 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 -Purine restricted diet -C/w Allopurinol 300 mg po Qd (says gets it from PCP Dr Albrecht)- since patient was running out ofmedication, refilled for her. RTC 5-6 months After visit summary (AVS ) documentation will be available through [employer] for this encounter. Pt seen with Dr. Devyn Small MD , MPH PGY-5, Rheumatology Fellow- Year 1 06/10/2019 8:48 AM Pager: [phone] [facility] - 06/10/2019 10:00 AM CD06/10/2019 I was immediately available for consultation during all aspects of the telemedicine encounter and after discussion with Dr. Staci MD I agree with resident's note as written. I personally did speak tothe patient during this encounter. MARIMAR SHEPARD MD pager [phone]/ [phone] doctor # [phone] documented in this encounter Plan of Treatment Name Type Priority Associated Diagnoses Order S chedule CBC WITH DIFF LAB Routine Erosive osteoart hritis Expected: 06/10/2019, Long-term use of Expires: high-risk medication COMP. METABOLIC PANEL LAB Routine Erosive os teoarthritis Expected: 06/10/2019, (22087) Long-term use of Expires: high-risk medication C-REACTIVE [...] of this encounter Implants Implanted Type Area Water Project Manager Device Identifier Shelf Exp iration Model / [...] LINDY X Medicare & B sent [phone] [place] [id number] [facility] [id number] 2015-Pre I ndemnity [employer] sent [phone] (Work) documented as of this encounter
--- OUTSIDE RECORDS SUMMARY | 2019-08-09 17:45 | XMS REPORT | Summary of Care ---
:1950 Author Organization [facility] Address [address] [place] [address] Care Team Providers Name Role Phone Unavailable Primary Care Provider Unavailable Reason for Visit Reason Comments Follow-up Encounter Details Date Type Department Care Team Description 06/10/2019 Telemedicine Visit [facility] Romulo Deleon MD [address] [place], [place] [id number] Erosive osteoarthritis (Primary Dx); Rheumatology-Zachary Gonsalez MD [address] [place], [place] [id number] [place], [place] [id number] Primary osteoarthritis involving multipl e joints; [facility] Burton Small MD [address] [place] [address]. [place] [address] [place], unspecified type; Ctr Chronic gout of foot, unspec ified cause, unspecified laterality; [facility] Pain in lindy th hands; [facility] Long-term use of Plaquenil; [place], [place] Long-term us e of high-risk medication; [id number] Vitamin D deficiency [phone] Allergies Active Allergy Reactions Severity Noted Date [...] by mouth 3 (three) times daily. LOVAZA, [id number] Take by 0 Active ethyl esters, 1 [...] via Telephone. Location of Patient: Home in [place], [place] Location of Provider: Office Total time [...] had Ophthalmology exam Apr 07, 2019 non [facility]. Says they dilated her eyes [...] make a full fist and has poor independent living instructor strength. Last seen 09/25/2017. She has [...] (PROBIOTIC PEARLS ORAL) Take by mouth. LOVAZA, [id number] ethyl esters, 1 gram capsule Take by [...] Plan: Advised to recheck Vit D. D/c 80606 Units po Qweekly and start Vit D 2000 Units po Qdaily group home use of plaquenil Comment: On plaquenil [...] make a full fist and has poor independent living instructor strength. -Purine restricted diet -C/w Allopurinol 300 mg po Qd (says gets it from PCP Dr Albrecht)- since patient was running out ofmedication, refilled for her. RTC 5-6 months After visit summary (AVS ) documentation will be available through [employer] for this encounter. Pt seen with Dr. Devyn Small MD , MPH PGY-5, Rheumatology Fellow- Year 1 06/10/2019 8:48 AM Pager: [phone] [facility] - 06/10/2019 10:00 AM CD06/10/2019 I was immediately available for consultation during all aspects of the telemedicine encounter and after discussion with Dr. Staci MD I agree with resident's note as written. I personally did speak tothe patient during this encounter. MARIMAR SHEPARD MD pager [phone]/ [phone] doctor # [id number] documented in this encounter Plan of Treatment Name Type Priority Associated Diagnoses Order S chedule CBC WITH DIFF LAB Routine Erosive osteoart hritis Expected: 06/10/2019, Long-term use of Expires: high-risk medication COMP. METABOLIC PANEL LAB Routine Erosive os teoarthritis Expected: 06/10/2019, ([id number]) Long-term use of Expires: high-risk medication C-REACTIVE [...] of this encounter Implants Implanted Type Area Locker Room Supervisor Device Identifier Shelf Exp iration Model / [...] LINDY X Medicare & B sent [id number] ANTWON PRECIADO [id number] [facility]LY [facility] [id number] 2015-Pre I ndemnity [employer] sent [phone] [id number] (Work) documented as of this encounter
[2019-08-09] MEDS ORDERED: MORPHINE 4 MG/ML SYR ONE (20:00)
[2019-08-09] MEDS ORDERED: ONDANSETRON 4 MG (ODT) TAB ONE (20:01)
--- NOTE | 2019-08-09 20:57 | RAD REPORT ---
EXAM DESCRIPTION: RAD - Shoulder Right 2 View - 08/09/2019 8:31 pm CLINICAL HISTORY: PAIN COMPARISON: No comparisons FINDINGS: AC joint degenerative changes are present. No acute fracture or dislocation evident.
--- NOTE | 2019-08-09 21:51 | ER ---
Nurse's Notes [facility] Name: Adalgisa Adams Age: 69 yrs Sex: Female : 1950 Arrival Date: 08/09/2019 Time: 17:45 Bed 11 Private MD: Diagnosis: Pain in right shoulder Presentation: 08/08 17:52 Chief complaint: Patient states: Shooting pains for 10 days from right shoulder to ll1 right elbow. No trauma or heavy lifting. Coronavirus screen: Proceed with normal triage. Patient denies a cough. Patient denies shortness of breath or difficulty breathing. Patient denies measured and/or subjective temperature greater than 100.4F prior to today's visit. Patient denies travel on a cruise ship or to a country the [facility] currently lists as an affected area. Patient denies contact with known and/or suspected case of COVID-19. Ebola Screen: Patient denies travel to an Ebola-affected area in the 21 days before illness onset. Initial Sepsis Screen: Does the patient meet any 2 criteria? No. Patient's initial sepsis screen is negative. Does the patient have a suspected source of infection? No. Patient's initial sepsis screen is negative. Risk Assessment: Do you want to hurt yourself or someone else? Patient reports no desire to harm self or others. Onset of symptoms was July 30, 2019. 17:52 Method Of Arrival: Ambulatory ll1 17:52 Acuity: SHERRIE 4 ll1 Historical: - Allergies: 17:55 Codeine; ll1 - PMHx: 17:55 Hypertension; Diabetes - NIDDM; ll1 - PSHx: 17:55 Carpal Tunnel Repair; ll1 - Immunization history:: Flu vaccine is up to date. - Social history:: Smoking status: Patient denies any tobacco usage or history of. Patient/guardian denies using alcohol, street drugs, tobacco products. Screenin:46 Abuse screen: Denies threats or abuse. Nutritional screening: No deficits noted. jd3 Tuberculosis screening: No symptoms or risk factors identified. Fall Risk Ambulatory Aid- None/Bed Rest/Nurse Assist (0 pts). Gait- Normal/Bed Rest/Wheelchair (0 pts) Mental Status- Oriented to own ability (0 pts). Total Figueroa Fall Scale indicates No Risk (0-24 pts). Assessment: 19:44 General: Appears in no apparent distress. uncomfortable, Behavior is calm, cooperative, jd3 appropriate for age. Pain: Complains of pain in right shoulder. Neuro: Level of Consciousness is awake, alert, obeys commands, Oriented to person, place, time, situation. Cardiovascular: Denies chest pain, shortness of breath, Heart tones S1 S2 present Capillary refill < 3 seconds Patient's skin is warm and dry. Respiratory: Airway is patent Respiratory effort is even, unlabored, Respiratory pattern is regular, symmetrical, Breath sounds are clear bilaterally. Denies cough, shortness of breath. GI: No signs and/or symptoms were reported involving the gastrointestinal system. : No signs and/or symptoms were reported regarding the genitourinary system. EENT: No signs and/or symptoms were reported regarding the EENT system. Derm: Skin is intact, Skin is dry, Skin is normal, Skin temperature is warm. Musculoskeletal: Circulation, motion, and sensation intact. Range of motion: limited in right shoulder. 20:45 Reassessment: Patient appears in no apparent distress at this time. Patient and/or ll1 family updated on plan of care and expected duration. Pain level reassessed. Patient is alert, oriented x 3, equal unlabored respirations, skin warm/dry/pink. 21:45 Reassessment: Patient appears in no apparent distress at this time. Patient and/or ll1 family updated on plan of care and expected duration. Pain level reassessed. Patient is alert, oriented x 3, equal unlabored respirations, skin warm/dry/pink. PMS intact pre and post sling application to RUE. Tolerated well.. Vital Signs: 17:52 BP 137 / 90; Pulse 86; Resp 18; Temp 97.2; Pulse Ox 96% ; Weight 107.95 kg; Height 5 1 ft. 4 in. (162.56 cm); Pain 9/10; 22:04 BP 121 / 65; Pulse 83; Resp 17; Pulse Ox 97% ; ll1 17:52 Body Mass Index 40.85 (107.95 kg, 162.56 cm) [facility] ED Course: 17:45 Patient arrived in ED. fj1 17:54 Triage completed. 1 17:55 Arm band placed on Patient notified of wait time. [facility] 19:33 Dwaine Juarez PA is PHCP. [facility] 19:33 Darrin Dhaliwal MD is Attending Physician. [facility] 19:44 Alfred Mcleod, RN is Primary Nurse. jd3 19:46 Patient has correct armband on for positive identification. Bed in low position. Call jd3 light in reach. Side rails up X 1. Adult w/ patient. Pulse ox on. NIBP on. 20:31 Shoulder Right (2 View) XRAY In Process Unspecified. EDMS 22:05 No provider procedures requiring assistance completed. Patient did not have IV access ll1 during this emergency room visit. Administered Medications: 19:57 Drug: morphine 4 mg {Note: rass 0.} Route: IM; Site: left deltoid; rr5 22:07 Follow up: Response: No adverse reaction; RASS: Alert and Calm (0) ll1 19:57 Drug: Zofran (Ondansetron) 4 mg Route: PO; rr5 22:07 Follow up: Response: No adverse reaction; RASS: Alert and Calm (0) ll1 Outcome: 21:50 Discharge ordered by MD. [facility] 22:06 Discharged to home ambulatory. ll1 22:06 Condition: stable 22:06 Discharge instructions given to patient, Instructed on discharge instructions, follow up and referral plans. no drinking with medication, no driving heavy equipment, medication usage, Demonstrated understanding of instructions, follow-up care, medications, Prescriptions given X 1. 22:07 Patient left the ED. ll1 Signatures: Dispatcher [employer] EDMS Dwaine Juarez PA PA jmm Davies, Jonathon, RN RN jd3 Andrew Benito RN RN rr5 Casimiro Kan 1 Yessi Matos, TAMMY RN ll1 Corrections: (The following items were deleted from the chart) 17:56 17:52 BP 137 / ???; Pulse 86bpm; Resp 18bpm; Pulse Ox 96%; Temp 97.2F; 107.95 kg; ll1 Height 5 ft. 4 in.; BMI: 40.8; Pain 9/10; ll1
--- NOTE | 2019-08-09 21:51 | EDPHYS ---
Physician Documentation [facility] Name: Adalgisa Adams Age: 69 yrs Sex: Female : 1950 Arrival Date: 08/09/2019 Time: 17:45 Bed 11 Private MD: ED Physician Darrin Dhaliwal HPI: 08/08 19:35 This 69 yrs old Black Female presents to ER via Ambulatory with complaints of SHOOTING jmm PAIN UP AND DOWN THE RT ARM FROM THE SHOULDER TO THE ELBOW. 19:35 The patient or guardian complains of pain, that is acute. Onset: The symptoms/episode jmm began/occurred gradually, 10 day(s) ago. Modifying factors: the symptoms are alleviated by nothing. The symptoms are aggravated by movement. Associated signs and symptoms: Pertinent negatives: chest pain, shortness of breath. This is a 69 year old female with a history of htn, DM that presents to the ED with complaints of right shoulder pain which has been ongoing for the past 10 days worsening today with radiation into the right elbow. Patient denies known injury. . Historical: - Allergies: 17:55 Codeine; ll1 - PMHx: 17:55 Hypertension; Diabetes - NIDDM; ll1 - PSHx: 17:55 Carpal Tunnel Repair; ll1 - Immunization history:: Flu vaccine is up to date. - Social history:: Smoking status: Patient denies any tobacco usage or history of. Patient/guardian denies using alcohol, street drugs, tobacco products. ROS: 19:35 Constitutional: Negative for fever, chills, and weight loss, Cardiovascular: Negative jmm for chest pain, palpitations, and edema, Respiratory: Negative for shortness of breath, cough, wheezing, and pleuritic chest pain. 19:35 MS/extremity: Positive for pain. 19:35 All other systems are negative. Exam: 19:35 Constitutional: This is a well developed, well nourished patient who is awake, alert, jmm and in no acute distress. Head/Face: atraumatic. Eyes: EOMI, no conjunctival erythema appreciated ENT: Moist Mucus Membranes Neck: Trachea midline, Supple Chest/axilla: Normal chest wall appearance and motion. Cardiovascular: Regular rate and rhythm. No edema appreciated Respiratory: Normal respirations, no respiratory distress appreciated Abdomen/GI: Non distended, soft Back: Normal ROM Skin: General appearance color normal 19:35 Musculoskeletal/extremity: right anterior shoulder TTP, painful abduction. compartments are soft, full radial pulse, NVI. 19:35 Skin: Appearance: Color: normal in color. 19:35 Neuro: Orientation: is normal, Mentation: is normal, Memory: is normal. 19:35 Psych: Behavior/mood is pleasant, cooperative. Vital Signs: 17:52 BP 137 / 90; Pulse 86; Resp 18; Temp 97.2; Pulse Ox 96% ; Weight 107.95 kg; Height 5 ll1 ft. 4 in. (162.56 cm); Pain 9/10; 22:04 BP 121 / 65; Pulse 83; Resp 17; Pulse Ox 97% ; ll1 17:52 Body Mass Index 40.85 (107.95 kg, 162.56 cm) ll1 MDM: 19:35 Patient medically screened. [facility] 21:49 Data reviewed: vital signs, nurses notes. Counseling: I had a detailed discussion with [facility] the patient and/or guardian regarding: the historical points, exam findings, and any diagnostic results supporting the discharge/admit diagnosis, radiology results, the need for outpatient follow up, to return to the emergency department if symptoms worsen or persist or if there are any questions or concerns that arise at home. ED course: Pain is relieved in the ED. Patient is advised to follow up with ortho for further evaluation. Patient understood and agrees with the plan of care. . 08/08 19:51 Order name: Shoulder Right (2 View) XRAY; Complete Time: 20:58 [facility] 08/08 21:03 Order name: Sling; Complete Time: 21:51 [facility] Administered Medications: 19:57 Drug: morphine 4 mg {Note: rass 0.} Route: IM; Site: left deltoid; rr5 22:07 Follow up: Response: No adverse reaction; RASS: Alert and Calm (0) ll1 19:57 Drug: Zofran (Ondansetron) 4 mg Route: PO; rr5 22:07 Follow up: Response: No adverse reaction; RASS: Alert and Calm (0) ll1 Disposition: 08/09 07:41 Co-signature as Attending Physician, Darrin Dhaliwal MD I agree with the assessment and [facility] plan of care. Disposition: 08/09/19 21:50 Discharged to Home. Impression: Pain in right shoulder. - Condition is Stable. - Discharge Instructions: Shoulder Pain. - Prescriptions for orphenadrine citrate 100 mg Oral Tablet Sustained Release - take 1 tablet by ORAL route 2 times per day As needed; 20 tablet. - Medication Reconciliation Form, Thank You Letter, Antibiotic Education, Prescription Opioid Use form. - Follow up: Private Physician; When: 2 - 3 days; Reason: Recheck today's complaints, Continuance of care, Re-evaluation by your physician. Signatures: Dispatcher [employer] EDDarrin Muir MD MD cha Mickail, Joel, PA PA jmm Roque, Raymond, RN RN rr5 Yessi Matos RN RN ll1 Corrections: (The following items were deleted from the chart) 08/08 22:07 21:50 08/09/2019 21:50 Discharged to Home. Impression: Pain in right shoulder. ll1 Condition is Stable. Forms are Medication Reconciliation Form, Thank You Letter, Antibiotic Education, Prescription Opioid Use. Follow up: Private Physician; When: 2 - 3 days; Reason: Recheck today's complaints, Continuance of care, Re-evaluation by your physician. brandi
[2019-08-09 22:18] VITALS: TEMP 97.2
[2019-08-09 22:19] VITALS: BP 121/65; O2SAT 97
== END 2019-08-09 22:07 | disposition home or self-care (01) ==
LOC: ER 17:41
DX: M25.511 Pain in right shoulder (principal); I10 Essential (primary) hypertension; Z88.5 Allergy status to narcotic agent
CPT/HCPCS: 96372; 99284